=== PATIENT | female | born 1970 | race Caucasian/White ===

== ENCOUNTER 2016-08-02 13:24 | Emergency (ER) ==
[2016-08-02 13:43] VITALS: BP 144/98; TEMP 97.6; BMI 26.5
--- NOTE | 2016-08-02 14:05 | CT ---
EXAM: CT scan of the head without contrast HISTORY: Fall TECHNIQUE: Imaging of the head was performed without intravenous contrast. 5 mm thin axial images and coronal and sagittal images were provided for interpretation. FINDINGS: The lateral ventricles and cortical sulci are normal. The baugh-white interface appears n ormal. No acute hemorrhages are seen. There is no mass effect. There are no extraaxial collection s. The basal cisterns are patent. The paranasal sinuses and mastoid air cells are clear. The calv arium and extracranial soft tissues are normal. IMPRESSION: No acute traumatic abnormalities are seen.
--- NOTE | 2016-08-02 14:09 | CT ---
Exam: CT cervical spine without contrast Clinical indication: Fall with neck pain. TECHNIQUE: Axial unenhanced CT images from the upper thoracic spine through the skull base were obt ained followed by coronal and sagittal reformats. Findings: The alignment of the cervical spine is within normal limits. There are no fractures, dislocations or other significant bony abnormalities. The disc spaces are well maintained. The visualized soft tissues and pulmonary parenchyma are unrem arkable. Impression: No acute cervical fracture.
--- NOTE | 2016-08-02 14:10 | ED.PDOC ---
General ED Provider: Dr. CHRISTIN BANSAL-ER Chief Complaint: Non-specific Complaint Stated Complaint: my neck and back hurt---im out of my valium for my fibromyalgia Time Seen by Physician: 13:30 Mode of Arrival: Walk-In Information Source: Patient, Family Exam Limitations: No limitations Primary Care Provider: DOROTEO VIDAL Nursing and Triage Documentation Reviewed and Agree: Yes Musculoskeletal Complaint Exam - Neck Pain Complaint/Exam Mechanism of Injury: Reports: Trauma Onset/Duration: several days Symptoms Are: Still present Timing: Intermittent Episodes Lasting: Hours Initial Severity: Mild Current Severity: Mild Location: Reports: Diffuse Character: Reports: Spasmodic, Stiffness Aggravating: Reports: Position, Movement Alleviating: Reports: None Associated Signs and Symptoms: Denies: Swelling, Redness, Bruising, Fever, Nuchal rigidity, Weakness, Headache, Paresthesia Related History: Reports: Similar episode Meningitis Risk Factors: Reports: None Cervical Spine Injury Risk Factors: Reports: None Carotid Bruit Present: No Pain on Passive Flexion: No Positive Kernig's Sign: No ROM Limited In: Present: Flexion, Extension Pain Located at: posterior neck Tenderness: Present: Midline Focal Weakness: Present: None Focal Sensory Loss: Reports: None Nexus Low Risk Criteria: No post-midline CS tender Differential Diagnoses: Arthritis, Trauma, Other (fibromyalgia) Review of Systems - Review Of Systems Constitutional: Reports: No symptoms Eyes: Reports: No symptoms Ears, Nose, Mouth, Throat: Reports: No symptoms Respiratory: Reports: No symptoms Cardiac: Reports: No symptoms GI: Reports: No symptoms : Reports: No symptoms Musculoskeletal: Reports: Back pain, Muscle pain, Neck pain Skin: Reports: No symptoms Neurological: Reports: No symptoms Endocrine: Reports: No symptoms Hematologic/Lymphatic: Reports: No symptoms All Other Systems: Reviewed and Negative Past Medical History - Past Medical History Previously Healthy: No Endocrine: Reports: DM 2 Cardiovascular: Reports: Hypertension Respiratory: Reports: COPD Hematological: Reports: None Gastrointestinal: Reports: Liver (ANEURYSM LIVER), GI Bleed Genitourinary: Reports: None Neuro/Psych: Reports: Other (FIBROMYALGIA) Musculoskeletal: Reports: Arthritis Cancer: Reports: Other (uterine) Last Menstrual Period: does not apply Other Pertinent Past Medical History: SLEEP APNEA - Surgical History General Surgical History: Reports: Hysterectomy, Cholecystectomy, Other (TUBAL REVERSAL), Unknown - Family History Family History: Reports: Unknown - Social History Smoking Status: Current some day smoker Hx Substance Use: No Alcohol Screening: Occasionally Lives: With family - Immunizations Tetanus Shot up to Date: Yes Physical Exam - Physical Exam Appearance: Well-appearing Eyes: GLORIA, EOMI, Conjunctiva clear ENT: Ears normal, Nose normal, Oropharynx normal Neck: Supple Respiratory: Airway patent, Breath sounds clear, Breath sounds equal, Respirations nonlabored Cardiovascular: RRR, Pulses normal, No rub, No murmur GI/: Soft, Nontender, No masses, Bowel sounds normal, No Organomegaly Musculoskeletal: Normal strength, ROM intact, No edema, No calf tenderness Skin: Warm, Dry, Normal color Neurological: Sensation intact, Motor intact, Reflexes intact, Cranial nerves intact, Alert, Oriented Psychiatric: Affect appropriate, Mood appropriate Interpretation - Radiology Interpretation Radiology Interpretation By: Radiologist Radiology Results: Negative Exam Interpreted: CT Scan Critical Care Note - Critical Care Note Total Time (mins): 0 Course - Course Orders, Labs, Meds: Orders Category Date Time Status CT CERVICAL SPINE W/O CONTRAST Stat RADS 08/02/16 13:[address] HEAD W/O CONTRAST Stat RADS 08/02/16 13:[address] LUMBAR SPINE W/O CONTRAST Stat RADS 08/02/16 13:43 Ordered Vital Signs: Temp Pulse Resp BP Pulse Ox 08/02/16 13:25 97.6 F 68 20 144/98 H 94 L Departure - Departure Time of Disposition: 14:27 Disposition: HOME SELF-CARE Discharge Problem: Fibromyalgia Instructions: Fibromyalgia (ED) Condition: Good Pt referred to PMD for follow-up: Yes Additional Instructions: valium 5mg tid #15=--f/u wtih pcp Allergies/Adverse Reactions: Allergies ketorolac tromethamine [From Toradol] Adverse Reaction (Verified 01/15/16 22:40) NSAIDS (Non-Steroidal Anti-Inflamma Adverse Reaction (Verified 01/15/16 22:40) Home Medications: Ambulatory Orders Albiglutide [Tanzeum] 50 mg SQ WEEKLY 07/27/15 Albuterol Sulfate [Proventil Hfa] 17 gm IH BID 07/27/15 Atorvastatin Calcium [Lipitor] 10 mg PO BEDTIME 07/27/15 Cyclobenzaprine HCl [Flexeril] 5 mg PO TID 07/27/15 Fluticasone Propionate [Flonase] 2 spray NS DAILY 07/27/15 Gemfibrozil [Lopid] 600 mg PO BID 07/27/15 Icosapent Ethyl [Vascepa] 1 gm PO DAILY 07/27/15 Insulin Glargine,Hum.rec.anlog [Lantus Solostar] 14 unit SQ DAILY 07/27/15 Omeprazole [Prilosec] 40 mg PO DAILY 07/27/15 Ondansetron HCl [Zofran Tab] 4 mg PO QID PRN #12 tablet 07/27/15 Promethazine HCl 25 mg PO Q4H PRN 07/27/15 Valsartan/Hydrochlorothiazide [Diovan Hct 320-25 mg Tablet] 1 each PO DAILY Vortioxetine Hydrobromide [Brintellix] 15 mg PO DAILY 07/27/15 Dicyclomine HCl [Bentyl] 10 mg PO TID 01/05/16 Docusate Sodium [Colace] 100 mg PO BID 01/05/16 Dronabinol [Marinol] 5 mg PO BID 01/05/16 Hydroxychloroquine Sulfate [Plaquenil] 400 mg PO DAILY 01/05/16 Sertraline HCl [Zoloft] 150 mg PO BEDTIME 01/05/16 Zolpidem Tartrate [Ambien] 5 mg PO BEDTIME 01/05/16 Disposition Discussed With: Patient, Family
--- NOTE | 2016-08-02 14:26 | CT ---
Exam: CT lumbar spine without contrast. Clinical indication: Fall with back pain. TECHNIQUE: Axial unenhanced CT images of the lumbar spine from the lower thoracic spine through the mid sacrum were obtained followed by coronal and sagittal reformats. Findings: There are five non-rib bearing lumbar vertebra. The alignment of the lumbar spine is within normal limits. There are no acute lumbar fractures. The T12-L1, L1-L2, and L2-L3 levels are within normal limits for the patient's age, without spinal s tenosis or neural foraminal narrowing. At the L3-L4 level there is a mild broad-based posterior disc bulge associate with some mild facet d egenerative changes, but no spinal stenosis or neural foraminal narrowing. At the L4-L5 level there is a moderate broad-based posterior disc bulge associate with moderate bila teral facet hypertrophic degenerative changes, causing mild bilateral neural foraminal narrowing, bu t no spinal stenosis. At the L5-S1 level there is a mild posterior broad-based disc bulge associate with some mild facet d egenerative changes, causing mild bilateral neural foraminal narrowing, but no spinal stenosis. The visualized soft tissues are unremarkable. Impression: 1. No acute lumbar fracture. 2. Multilevel degenerative changes with neural foraminal narrowing, as described above on the level by level basis.
== END 2016-08-02 14:41 | disposition home or self-care (01) ==
LOC: ED 13:24
DX: M79.7 Fibromyalgia (principal); F17.210 Nicotine dependence, cigarettes, uncomplicated; Z79.899 Other long term (current) drug therapy
CPT/HCPCS: 99283

== ENCOUNTER 2016-08-06 21:12 | Emergency (ER) ==
--- NOTE | 2016-08-06 21:16 | ED.PDOC ---
General ED Provider: Dr. CHRISTIN BANSAL-ER Chief Complaint: Non-specific Complaint Stated Complaint: my fibromyalgia is acting up...i ran out of my valium Time Seen by Physician: 21:14 Mode of Arrival: Walk-In Information Source: Patient, Family Primary Care Provider: DOROTEO VIDAL Nursing and Triage Documentation Reviewed and Agree: Yes Musculoskeletal Complaint Exam - Lower Extremity Complaint/Exam Location of Pain: Reports: Right, Left Mechanism of Injury: Reports: No known trauma Onset/Duration: several days Symptoms Are: Still present Onset of Pain: Reports: Immediate Initial Severity: Mild Current Severity: Mild Location: Reports: Diffuse Character: Reports: Dull, Aching Aggravating: Reports: Movement, Weight bearing Able to Bear Weight: No Associated Signs and Symptoms: Denies: Swelling, Redness, Bruising, Fever, Weakness, Numbness, Tingling Related History: Reports: Similar episode DVT Risk Factors: Reports: None Lower Extremity Findings: Present: Tenderness NV Bundle Intact Distal to Injury: No Compartment Syndrome Risk Factors: Present: Pain Wellington's Sign Present: No Differential Diagnoses: Other Review of Systems - Review Of Systems Constitutional: Reports: No symptoms Eyes: Reports: No symptoms Ears, Nose, Mouth, Throat: Reports: No symptoms Respiratory: Reports: No symptoms Cardiac: Reports: No symptoms GI: Reports: No symptoms : Reports: No symptoms Musculoskeletal: Reports: No symptoms Skin: Reports: No symptoms Neurological: Reports: No symptoms Endocrine: Reports: No symptoms Hematologic/Lymphatic: Reports: No symptoms All Other Systems: Reviewed and Negative Past Medical History - Past Medical History Previously Healthy: No Endocrine: Reports: DM 2 Cardiovascular: Reports: Hypertension Respiratory: Reports: COPD Hematological: Reports: None Gastrointestinal: Reports: Liver (ANEURYSM LIVER), GI Bleed Genitourinary: Reports: None Neuro/Psych: Reports: Other (FIBROMYALGIA) Musculoskeletal: Reports: Arthritis Cancer: Reports: Other (uterine) Other Pertinent Past Medical History: SLEEP APNEA - Surgical History General Surgical History: Reports: Hysterectomy, Cholecystectomy, Other (TUBAL REVERSAL), Unknown - Family History Family History: Reports: Unknown - Social History Smoking Status: Former smoker Hx Substance Use: No Alcohol Screening: Occasionally Lives: With family Physical Exam - Physical Exam Appearance: Well-appearing, No pain distress, Well-nourished Pain Distress: Mild Eyes: GLORIA, EOMI, Conjunctiva clear ENT: Ears normal, Nose normal, Oropharynx normal Neck: Supple Respiratory: Airway patent, Breath sounds clear, Breath sounds equal, Respirations nonlabored Cardiovascular: RRR GI/: Soft, Nontender, No masses, Bowel sounds normal, No Organomegaly Musculoskeletal: Limited ROM, Limited strength Skin: Warm, Dry, Normal color Neurological: Sensation intact, Motor intact, Reflexes intact, Cranial nerves intact, Alert, Oriented Psychiatric: Affect appropriate, Mood appropriate Critical Care Note - Critical Care Note Total Time (mins): 0 Departure - Departure Time of Disposition: 21:16 Disposition: HOME SELF-CARE Discharge Problem: Fibromyalgia Instructions: Fibromyalgia (ED) Condition: Good Pt referred to PMD for follow-up: Yes Additional Instructions: valium 5mg tid #15--f/u with pcp Allergies/Adverse Reactions: Allergies ketorolac tromethamine [From Toradol] Adverse Reaction (Verified 01/15/16 22:40) NSAIDS (Non-Steroidal Anti-Inflamma Adverse Reaction (Verified 01/15/16 22:40) Home Medications: Ambulatory Orders Albiglutide [Tanzeum] 50 mg SQ WEEKLY 07/27/15 Albuterol Sulfate [Proventil Hfa] 17 gm IH BID 07/27/15 Atorvastatin Calcium [Lipitor] 10 mg PO BEDTIME 07/27/15 Cyclobenzaprine HCl [Flexeril] 5 mg PO TID 07/27/15 Fluticasone Propionate [Flonase] 2 spray NS DAILY 07/27/15 Gemfibrozil [Lopid] 600 mg PO BID 07/27/15 Icosapent Ethyl [Vascepa] 1 gm PO DAILY 07/27/15 Insulin Glargine,Hum.rec.anlog [Lantus Solostar] 14 unit SQ DAILY 07/27/15 Omeprazole [Prilosec] 40 mg PO DAILY 07/27/15 Ondansetron HCl [Zofran Tab] 4 mg PO QID PRN #12 tablet 07/27/15 Promethazine HCl 25 mg PO Q4H PRN 07/27/15 Valsartan/Hydrochlorothiazide [Diovan Hct 320-25 mg Tablet] 1 each PO DAILY Vortioxetine Hydrobromide [Brintellix] 15 mg PO DAILY 07/27/15 Dicyclomine HCl [Bentyl] 10 mg PO TID 01/05/16 Docusate Sodium [Colace] 100 mg PO BID 01/05/16 Dronabinol [Marinol] 5 mg PO BID 01/05/16 Hydroxychloroquine Sulfate [Plaquenil] 400 mg PO DAILY 01/05/16 Sertraline HCl [Zoloft] 150 mg PO BEDTIME 01/05/16 Zolpidem Tartrate [Ambien] 5 mg PO BEDTIME 01/05/16 Disposition Discussed With: Patient, Family
[2016-08-06 21:25] VITALS: BP 146/95; TEMP 97.3; BMI 25.1
== END 2016-08-06 21:38 | disposition home or self-care (01) ==
LOC: ED 21:12
DX: M79.7 Fibromyalgia (principal)
CPT/HCPCS: 99283

== ENCOUNTER 2016-08-28 13:28 | Emergency (ER) ==
[2016-08-28 13:38] VITALS: BP 89/62; TEMP 97.8; BMI 25.6
--- NOTE | 2016-08-28 13:51 | ED.PDOC ---
General ED Provider: Dr. CINDI SHEPARD JR Chief Complaint: Bite Stated Complaint: patient states she cleaned in her basement and woke up with next day with red, itchy bumps on right arm. patient has 3 areas that are approx the 2.5 cm in diameter. [ End ] Time Seen by Physician: 13:49 Mode of Arrival: Walk-In Information Source: Patient Exam Limitations: No limitations Primary Care Provider: DOROTEO VIDAL Nursing and Triage Documentation Reviewed and Agree: No Review of Systems - Review Of Systems Constitutional: Reports: No symptoms Eyes: Reports: No symptoms Ears, Nose, Mouth, Throat: Reports: No symptoms Respiratory: Reports: No symptoms Cardiac: Reports: No symptoms GI: Reports: No symptoms : Reports: No symptoms Musculoskeletal: Reports: No symptoms Skin: Reports: Lesions, Lumps Neurological: Reports: No symptoms Endocrine: Reports: No symptoms Hematologic/Lymphatic: Reports: No symptoms All Other Systems: Other Past Medical History - Past Medical History Previously Healthy: No Endocrine: Reports: DM 2 Cardiovascular: Reports: Hypertension Respiratory: Reports: COPD Hematological: Reports: None Gastrointestinal: Reports: Liver (ANEURYSM LIVER), GI Bleed Genitourinary: Reports: None Neuro/Psych: Reports: Other (FIBROMYALGIA) Musculoskeletal: Reports: Arthritis Cancer: Reports: Other (uterine) Last Menstrual Period: n/a Other Pertinent Past Medical History: SLEEP APNEA - Surgical History General Surgical History: Reports: Hysterectomy, Cholecystectomy, Other (TUBAL REVERSAL), Unknown - Family History Family History: Reports: Unknown - Social History Smoking Status: Former smoker Hx Substance Use: No Alcohol Screening: Occasionally Physical Exam - Physical Exam Appearance: Ill-appearing, Thin Ill-appearing: Mild Pain Distress: Mild Neck: Supple Respiratory: Airway patent, Breath sounds equal, Breath sounds diminished, Rhonchi Skin: Warm, Dry, Normal color (4 EXCORIATED LESIONS RIGHT ARM AND ELBOW NO PUNCTURES SEEN 1-2CM ERYTHEMA AND EDEMA ITCHING AND PAINFUL) Critical Care Note - Critical Care Note Total Time (mins): 0 Course - Course Vital Signs: Temp Pulse Resp BP Pulse Ox 08/28/16 13:35 97.8 F 67 20 89/62 L 97 Departure - Departure Time of Disposition: 13:50 Disposition: HOME SELF-CARE Discharge Problem: Insect bite, Cellulitis Instructions: Cellulitis (ED) Condition: Good Pt referred to PMD for follow-up: Yes Additional Instructions: BACTRIM TWICE ADAY FOR ONE WEEK MAY USE BENADRYL FOR IITCING MAY CONTINUE IBUPROFEN FOR PAIN Please follow-up with Dr. Yuan in 1-5 days Prescriptions: Sulfamethoxazole/Trimethoprim [Bactrim Ds 800/160 mg] 1 tab PO Q12HR #14 tablet Diphenhydramine HCl [Benadryl] 25 mg PO QID #30 capsule Allergies/Adverse Reactions: Allergies ketorolac tromethamine [From Toradol] Adverse Reaction (Verified 08/28/16 13:39) morphine Adverse Reaction (Verified 08/28/16 13:39) Rash NSAIDS (Non-Steroidal Anti-Inflamma Adverse Reaction (Verified 08/28/16 13:39) Home Medications: Ambulatory Orders Albiglutide [Tanzeum] 50 mg SQ WEEKLY 07/27/15 Albuterol Sulfate [Proventil Hfa] 17 gm IH BID 07/27/15 Atorvastatin Calcium [Lipitor] 10 mg PO BEDTIME 07/27/15 Cyclobenzaprine HCl [Flexeril] 10 mg PO TID 07/27/15 Fluticasone Propionate [Flonase] 2 spray NS DAILY 07/27/15 Gemfibrozil [Lopid] 600 mg PO BID 07/27/15 Icosapent Ethyl [Vascepa] 1 gm PO DAILY 07/27/15 Insulin Glargine,Hum.rec.anlog [Lantus Solostar] 14 unit SQ DAILY 07/27/15 Omeprazole [Prilosec] 40 mg PO DAILY 07/27/15 Promethazine HCl 25 mg PO Q4H PRN 07/27/15 Valsartan/Hydrochlorothiazide [Diovan Hct 320-25 mg Tablet] 1 each PO DAILY Vortioxetine Hydrobromide [Brintellix] 15 mg PO DAILY 07/27/15 Dicyclomine HCl [Bentyl] 10 mg PO TID 01/05/16 Docusate Sodium [Colace] 100 mg PO BID 01/05/16 Hydroxychloroquine Sulfate [Plaquenil] 400 mg PO DAILY 01/05/16 Sertraline HCl [Zoloft] 150 mg PO BEDTIME 01/05/16 Diphenhydramine HCl [Benadryl] 25 mg PO QID #30 capsule 03/30/17 Sulfamethoxazole/Trimethoprim [Bactrim Ds 800/160 mg] 1 tab PO Q12HR #14 tablet 08/28/16
== END 2016-08-28 14:07 | disposition home or self-care (01) ==
LOC: ED 13:28
DX: S40.861A Insect bite (nonvenomous) of right upper arm, initial encounter (principal); L03.113 Cellulitis of right upper limb; W57.XXXA Bitten or stung by nonvenomous insect and other nonvenomous arthropods, initial encounter
CPT/HCPCS: 99282

== ENCOUNTER 2016-09-20 19:15 | Emergency (ER) ==
[2016-09-20 19:25] VITALS: BP 131/92; TEMP 97.8; BMI 26.2
[2016-09-20] MEDS ORDERED: KEFLEX PO STA (20:05)
[2016-09-20] MEDS ORDERED: SOLU-MEDROL 125 MG IM STA (20:05)
--- NOTE | 2016-09-20 20:16 | ED.PDOC ---
General ED Provider: Dr. EDWARDO NOVAK Chief Complaint: Rash Stated Complaint: Patient is a 46 year old female who states was seen in [place] ER 2 weeks ago and prescribed antibiotic and Benadryl for same rash that has not gone away. She continues to have red, itchy spots on legs, feet and inner thighs and states is painful. She also states has treated house for bed bugs Time Seen by Physician: 20:00 Mode of Arrival: Walk-In Information Source: Patient Exam Limitations: No limitations Primary Care Provider: JONATHAN WILLOUGHBY Nursing and Triage Documentation Reviewed and Agree: Yes Skin Complaint Exam - Skin Rash/Itching Complaint/Exam Onset/Duration: 2 weeks Symptoms Are: Still present Initial Severity: Moderate Current Severity: Moderate Location: Legs Potential Exposures: Reports: Unknown Prior Treatment: Benadryl Aggravating: Reports: None Alleviating: Reports: None Related History: Similar episode Skin Findings: Present: Urticaria, Maculae Body Picture: 1 - scattared areas of papuric lesions measuring 2 cm Differential Diagnoses: Allergic Reaction, Contact Dermatitis, Scabies, Urticaria Review of Systems - Review Of Systems Constitutional: Reports: No symptoms Skin: Reports: Rash All Other Systems: Reviewed and Negative Past Medical History - Past Medical History Previously Healthy: No Endocrine: Reports: DM 2 Cardiovascular: Reports: Hypertension Respiratory: Reports: COPD Hematological: Reports: None Gastrointestinal: Reports: Liver (ANEURYSM LIVER), GI Bleed Genitourinary: Reports: None Neuro/Psych: Reports: Other (FIBROMYALGIA) Musculoskeletal: Reports: Arthritis Cancer: Reports: Other (uterine) Last Menstrual Period: PT HAS HAD A HYSTERECTOMY Other Pertinent Past Medical History: SLEEP APNEA - Surgical History General Surgical History: Reports: Hysterectomy, Cholecystectomy, Other (TUBAL REVERSAL), Unknown - Family History Family History: Reports: Unknown - Social History Smoking Status: Current some day smoker Hx Substance Use: No (PT HAS RX FOR MEDICAL MARIJUANA) Alcohol Screening: Occasionally - Immunizations Tetanus Shot up to Date: Yes Physical Exam - Physical Exam Appearance: Well-appearing, No pain distress, Well-nourished Neck: Supple Respiratory: Airway patent, Breath sounds clear, Breath sounds equal, Respirations nonlabored Cardiovascular: RRR, Pulses normal, No rub, No murmur GI/: Soft, Nontender, No masses, Bowel sounds normal, No Organomegaly Musculoskeletal: Normal strength, ROM intact, No edema, No calf tenderness Skin: Warm, Dry Neurological: Sensation intact, Motor intact, Alert, Oriented Psychiatric: Anxious Critical Care Note - Critical Care Note Total Time (mins): 0 Course - Course Orders, Labs, Meds: Orders Category Date Time Status Cephalexin [Keflex] MEDS 09/20/16 20:05 Discontinued 500 mg PO ONCE STA Methylprednisolone Sod Succ/Pf [Solu-Medrol 125 mg] MEDS 09/20/16 20:05 Discontinued 125 mg IM ONCE STA Medications Discontinued Medications Generic Name Dose Route Start Last Admin Trade Name Kody PRN Reason Stop Dose Admin Cephalexin 500 mg 09/20/16 20:05 09/20/16 20:17 Keflex PO 09/20/16 20:06 500 mg ONCE STA Administration Methylprednisolone Sodium Succinate 125 mg 09/20/16 20:05 09/20/16 20:18 Solu-Medrol 125 Mg IM 09/20/16 20:06 125 mg ONCE STA Administration Vital Signs: Temp Pulse Resp BP Pulse Ox 09/20/16 19:16 97.8 F 74 20 131/92 H 98 Departure - Departure Time of Disposition: 20:40 Disposition: HOME SELF-CARE Discharge Problem: Pruritic rash, Dermatitis Instructions: Dermatitis (ED) Condition: Fair Pt referred to PMD for follow-up: Yes Additional Instructions: Take medications as prescribed follow up with PCP in 3 days Prescriptions: Cephalexin [Keflex] 500 mg PO Q8HR #30 capsule Methylprednisolone [Medrol Dosepak] 4 mg PO DIRECTED #1 pkg Allergies/Adverse Reactions: Allergies ketorolac tromethamine [From Toradol] Adverse Reaction (Verified 09/20/16 19:25) morphine Adverse Reaction (Verified 09/20/16 19:25) Rash NSAIDS (Non-Steroidal Anti-Inflamma Adverse Reaction (Verified 09/20/16 19:25) Home Medications: Ambulatory Orders Albiglutide [Tanzeum] 50 mg SQ WEEKLY 07/27/15 Albuterol Sulfate [Proventil Hfa] 17 gm IH BID 07/27/15 Atorvastatin Calcium [Lipitor] 10 mg PO BEDTIME 07/27/15 Cyclobenzaprine HCl [Flexeril] 10 mg PO TID 07/27/15 Fluticasone Propionate [Flonase] 2 spray NS DAILY 07/27/15 Gemfibrozil [Lopid] 600 mg PO BID 07/27/15 Icosapent Ethyl [Vascepa] 1 gm PO DAILY 07/27/15 Insulin Glargine,Hum.rec.anlog [Lantus Solostar] 14 unit SQ DAILY 07/27/15 Omeprazole [Prilosec] 40 mg PO DAILY 07/27/15 Promethazine HCl 25 mg PO Q4H PRN 07/27/15 Valsartan/Hydrochlorothiazide [Diovan Hct 320-25 mg Tablet] 1 each PO DAILY Vortioxetine Hydrobromide [Brintellix] 15 mg PO DAILY 07/27/15 Dicyclomine HCl [Bentyl] 10 mg PO TID 01/05/16 Docusate Sodium [Colace] 100 mg PO BID 01/05/16 Hydroxychloroquine Sulfate [Plaquenil] 400 mg PO DAILY 01/05/16 Sertraline HCl [Zoloft] 150 mg PO BEDTIME 01/05/16 Sulfamethoxazole/Trimethoprim [Bactrim Ds 800/160 mg] 1 tab PO Q12HR #14 tablet 08/28/16 Cephalexin [Keflex] 500 mg PO Q8HR #30 capsule 09/20/16 Clonazepam [Klonopin] 0.5 mg PO TID 09/20/16 Diphenhydramine HCl [Benadryl] 25 mg PO QID PRN 09/20/16 Methylprednisolone [Medrol Dosepak] 4 mg PO DIRECTED #1 pkg 09/20/16 Disposition Discussed With: Patient, Family
== END 2016-09-20 20:32 | disposition home or self-care (01) ==
LOC: ED 19:15
DX: L30.9 Dermatitis, unspecified (principal); F17.210 Nicotine dependence, cigarettes, uncomplicated
CPT/HCPCS: 96372; 99282

== ENCOUNTER 2016-11-27 16:44 | Outpatient (CLI) ==
[2016-11-27 16:55] LABS: BASOPHILS # (AUTO) 0.1 K/uL (0-0.2); BASOPHILS % (AUTO) 0.7 % (0.0-3.0); EOSINOPHILS # (AUTO) 0.3 K/ul (0.0-0.7); EOSINOPHILS % (AUTO) 3.4 % (0.0-7.0); HEMATOCRIT 43.8 % (37.0-47.0); HEMOGLOBIN 14.8 g/dl (12.0-16.0); IMMATURE GRANULOCYTE % (AUTO) 0.1 % (0.0-5.0); LYMPHOCYTES # (AUTO) 3.3 K/uL (0.60-3.4); LYMPHOCYTES % (AUTO) 37.4 (10.0-50.0); MEAN CORPUSCULAR HEMOGLOBIN 29.8 pg (27.0-31.0); MEAN CORPUSCULAR HGB CONC 33.8 (31.8-35.4); MEAN CORPUSCULAR VOLUME 88.3 fl (81.0-99.0); MONOCYTES # (AUTO) 0.5 K/uL (0.4-2.0); MONOCYTES % (AUTO) 5.9 (0-10); NEUTROPHILS # (AUTO) 4.6 K/ul (2.0-6.9); NEUTROPHILS % (AUTO) 52.5; PLATELET COUNT 320 10^3/uL (140-440); RED BLOOD COUNT 4.96 10^6/ul (4.20-5.40); WHITE BLOOD COUNT 8.82 K/ul (4.6-10.2)
[2016-11-27 17:28] LABS: ALBUMIN 3.9 g/dL (3.4-5.0); ALBUMIN/GLOBULIN RATIO 1.44; ANION GAP 13.1; BILIRUBIN,TOTAL 0.41 mg/dL (0.00-1.20); BUN/CREATININE RATIO 11.45; CALCIUM 9.1 mg/dL (8.2-10.2); CHOL/HDL RATIO 3.5 (4.5-5.5); CREATININE 0.96 mg/dL (0.60-1.30); POTASSIUM 4.1 mmol/L (3.5-5.10); TOTAL PROTEIN 6.6 g/dL (6.4-8.2)
== END 2016-11-27 16:45 | disposition home or self-care (01) ==
LOC: LAB 16:44
PROVIDERS: ATTEND Nurse Practitioner Family
DX: E75.6 Lipid storage disorder, unspecified (principal); M79.7 Fibromyalgia; M06.9 Rheumatoid arthritis, unspecified; M19.90 Unspecified osteoarthritis, unspecified site
CPT/HCPCS: 36415; 80053; 80061; 82306; 84439; 84443; 85025

== ENCOUNTER 2017-02-11 07:20 | Emergency (ER) ==
[2017-02-11 07:28] VITALS: BP 106/81; TEMP 98.3; BMI 29.5
--- NOTE | 2017-02-11 07:47 | ED.PDOC ---
General ED Provider: Dr. CINDI SHEPARD JR Chief Complaint: Urinary Problem Stated Complaint: problems voiding--states has lots of pressure to lower abd- feels that she has to push on abd to void--pain worsened last pm. [ End ]98.3 71 20 97% 106/81 9/10. 3 days since benadryl 3 months since fluoroquinolones Time Seen by Physician: 07:48 Mode of Arrival: Walk-In Information Source: Patient Exam Limitations: No limitations [facility] and T[facility] Documentation Reviewed and Agree: No Review of Systems - Review Of Systems Constitutional: Reports: Malaise, Weakness Eyes: Reports: No symptoms Ears, Nose, Mouth, Throat: Reports: No symptoms Respiratory: Reports: No symptoms Cardiac: Reports: No symptoms GI: Reports: Abdominal pain, Poor appetite : Reports: Dysuria, Flank pain, Pain, Urgency Musculoskeletal: Reports: No symptoms Skin: Reports: No symptoms Neurological: Reports: No symptoms Endocrine: Reports: No symptoms Hematologic/Lymphatic: Reports: No symptoms All Other Systems: Other Past Medical History - Past Medical History Previously Healthy: No Endocrine: Reports: DM 2 Cardiovascular: Reports: Hypertension Respiratory: Reports: COPD Hematological: Reports: None Gastrointestinal: Reports: Liver (ANEURYSM LIVER), GI Bleed, Diverticulitis, Other (gastroparesis,) Genitourinary: Reports: None Neuro/Psych: Reports: Depression, Other (FIBROMYALGIA) Musculoskeletal: Reports: Arthritis Cancer: Reports: Other (uterine, ovarian cancer, skin cancer) Last Menstrual Period: hysterectomy Other Pertinent Past Medical History: SLEEP APNEA- chronic pain- Yes: medical marijuana - Surgical History General Surgical History: Reports: Hysterectomy, Tubal ligation (TUBAL REVERSAL) , Cholecystectomy, Other (TUBAL REVERSAL), Unknown - Family History Family History: Reports: Unknown - Social History Smoking Status: Former smoker Hx Substance Use: Yes (medical marijuana) Alcohol Screening: None Physical Exam - Physical Exam Appearance: Well-appearing Ill-appearing: Mild Pain Distress: Mild Eyes: GLORIA, EOMI, Conjunctiva clear ENT: Ears normal, Nose normal, Oropharynx normal Neck: Supple Respiratory: Airway patent, Breath sounds clear, Breath sounds equal, Respirations nonlabored Cardiovascular: RRR, Pulses normal, No rub, No murmur GI/: Soft, Nontender, No masses, Bowel sounds normal, No Organomegaly Musculoskeletal: Normal strength, ROM intact, No edema, No calf tenderness ( diffuse tenderess- winces with CVA percussion(no more pain than ususal)) Skin: Warm, Dry, Normal color Neurological: Sensation intact, Motor intact, Reflexes intact, Cranial nerves intact, Alert, Oriented Psychiatric: Affect appropriate, Mood appropriate, Anxious Critical Care Note - Critical Care Note Total Time (mins): 0 Course - Course Orders, Labs, Meds: Lab Review 02/11/17 07:44 Urine Color Yellow Urine Clarity Turbid Urine pH 6.5 Ur Specific [place] 1.020 Urine Protein 2+ Urine Glucose (UA) Negative Urine Ketones Negative Urine Blood 2+ Urine Nitrite Negative Urine Bilirubin Negative Urine Urobilinogen 0.2 Ur Leukocyte Esterase 3+ Urine Microscopic RBC 30-50 Urine Microscopic WBC Tntc Ur Squamous Epith Cells Not present Orders Category Date Time Status UA [URINALYSIS C & S IF INDICATED] Stat LAB 02/11/17 07:44 Completed URINE CULTURE Stat LAB 02/11/17 07:44 Received Diphenhydramine Inj [Benadryl] MEDS 02/11/17 07:58 Stat 50 mg IM ONCE STA Medications Generic Name Dose Route Start Last Admin Trade Name Freq PRN Reason Stop Dose Admin Diphenhydramine HCl 50 mg 02/11/17 07:58 Benadryl IM 02/11/17 07:59 ONCE STA Vital Signs: Temp Pulse Resp BP Pulse Ox 02/11/17 07:20 98.3 F 71 20 106/81 97 Departure - Departure Time of Disposition: 08:00 Disposition: HOME SELF-CARE Discharge Problem: Urinary tract infectious disease Instructions: Urinary Tract Infection in Women (ED) Condition: Good Pt referred to PMD for follow-up: Yes Additional Instructions: call PMD in 2 days about antibiotic and urine culture Macrobid twice a day for one week Pyridium for discomfort 200mg three times a day may add Tylenol and Benadryl for pain if Pyridium is enough Prescriptions: Nitrofurantoin Monohyd/M-Cryst [Macrobid] 100 mg PO BID #14 capsule Phenazopyridine HCl [Pyridium] 200 mg PO TID PRN #10 tablet PRN Reason: PAIN Allergies/Adverse Reactions: Allergies meperidine HCl [From Demerol] Allergy (Intermediate, Verified 02/11/17 07:30) itching ketorolac tromethamine [From Toradol] Adverse Reaction (Verified 02/11/17 07:30) morphine Adverse Reaction (Verified 02/11/17 07:30) Rash NSAIDS (Non-Steroidal Anti-Inflamma Adverse Reaction (Verified 02/11/17 07:30) Home Medications: Ambulatory Orders Albiglutide [Tanzeum] 50 mg SQ WEEKLY 07/27/15 Atorvastatin Calcium [Lipitor] 10 mg PO BEDTIME 07/27/15 Cyclobenzaprine HCl [Flexeril] 10 mg PO TID 07/27/15 Fluticasone Propionate [Flonase] 2 spray NS DAILY 07/27/15 Insulin Glargine,Hum.rec.anlog [Lantus Solostar] 14 unit SQ DAILY 07/27/15 Dicyclomine HCl [Bentyl] 10 mg PO TID 01/05/16 Docusate Sodium [Colace] 100 mg PO BID 01/05/16 Hydroxychloroquine Sulfate [Plaquenil] 400 mg PO DAILY 01/05/16 Sertraline HCl [Zoloft] 150 mg PO BEDTIME 01/05/16 Clonazepam [Klonopin] 0.5 mg PO TID 09/20/16 Diphenhydramine HCl [Benadryl] 25 mg PO QID PRN 09/20/16 Albuterol Sulfate [Proair Hfa] 8.5 gm IH QID PRN 10/29/16 Amlodipine Besylate [Norvasc] 5 mg PO DAILY 10/29/16 Dulaglutide [Trulicity] 1.5 mg SQ WEEKLY 10/29/16 Gabapentin 300 mg PO TID 10/29/16 Gemfibrozil [Lopid] 600 mg PO BID 10/29/16 Icosapent Ethyl [Vascepa] 1 gm PO DAILY 10/29/16 Omeprazole 40 mg PO DAILY 10/29/16 Valsartan/Hydrochlorothiazide [Diovan Hct 320-12.5 Mg Tab] 1 each PO DAILY 10/29 Vortioxetine Hydrobromide [Trintellix] 10 mg PO DAILY 10/29/16 Nitrofurantoin Monohyd/M-Cryst [Macrobid] 100 mg PO BID #14 capsule 02/11/17 Phenazopyridine HCl [Pyridium] 200 mg PO TID PRN #10 tablet 02/11/17
[2017-02-11 07:48] LABS: BILIRUBIN,URINE Negative (NEGATIVE); KETONES,URINE Negative (NEGATIVE); LEUKOCYTE ESTERASE ,URINE 3+ (NEGATIVE); NITRITE,URINE Negative (NEGATIVE); PH,URINE 6.5 (5-9); PROTEIN,URINE 2+ (NEGATIVE); URINE, BLOOD 2+ (NEGATIVE)
[2017-02-11 07:49] LABS: ADD URINE MICROSCOPIC YES
[2017-02-11] MEDS ORDERED: BENADRYL IM STA (07:58)
== END 2017-02-11 08:26 | disposition home or self-care (01) ==
LOC: ED 07:20
DX: N39.0 Urinary tract infection, site not specified (principal)
CPT/HCPCS: 81001; 87086; 87186; 96372; 99283

== ENCOUNTER 2017-02-18 16:18 | Emergency (ER) ==
[2017-02-18 16:32] VITALS: BP 143/87; TEMP 98.5; BMI 30.1
--- NOTE | 2017-02-18 17:38 | ED.PDOC ---
General ED Provider: Dr. BIPIN FOWLER Chief Complaint: Urinary Problem Stated Complaint: Seen here 4 days ago with inabilty to urinate x 1 day. Dx'd with UTI and placed on Macrodantin & pyridium. Still having same symptoms ( eased a little when on pyridium - out now), also diarrhea, abdominal bloating, and generalized abdominal pain. Time Seen by Physician: 17:33 Mode of Arrival: Walk-In Information Source: Patient Exam Limitations: No limitations [facility] and Triage Documentation Reviewed and Agree: Yes Complaint Exam - UTI Female Complaint/Exam Patient Complains of: Reports: Painful urination Onset/Duration: 5 days Symptoms Are: Still present Timing: Constant Initial Severity: Mild Current Severity: Severe Location of Pain: Reports: Diffuse, Suprapubic Associated Signs and Symptoms: Reports: Chills Patient Rh Status: Unknown Related History: Reports: Similar episode (see HPI) Related Surgical History: Reports: Hysterectomy CVA Tenderness: No Differential Diagnoses: Cystitis Review of Systems - Review Of Systems Constitutional: Reports: Chills Respiratory: Reports: No symptoms Cardiac: Reports: No symptoms GI: Reports: Abdominal pain (mild generalized abd pain), Diarrhea : Reports: Dysuria, Pain (denies any vaginal discharge,itching or burning) Musculoskeletal: Reports: No symptoms Skin: Reports: No symptoms Neurological: Reports: No symptoms All Other Systems: Reviewed and Negative Past Medical History - Past Medical History Previously Healthy: No Endocrine: Reports: DM 2 Cardiovascular: Reports: Hypertension Respiratory: Reports: COPD Hematological: Reports: None Gastrointestinal: Reports: Liver (ANEURYSM LIVER), GI Bleed, Diverticulitis, Other (gastroparesis,) Genitourinary: Reports: None Neuro/Psych: Reports: Depression, Other (FIBROMYALGIA) Musculoskeletal: Reports: Arthritis Cancer: Reports: Other (uterine, ovarian cancer, skin cancer) Last Menstrual Period: hysterectomy Other Pertinent Past Medical History: SLEEP APNEA- chronic pain- Yes: medical marijuana - Surgical History General Surgical History: Reports: Hysterectomy, Tubal ligation (TUBAL REVERSAL) , Cholecystectomy, Other (TUBAL REVERSAL), Unknown - Family History Family History: Reports: Unknown - Social History Smoking Status: Former smoker Hx Substance Use: Yes (medical marijuana) Alcohol Screening: None Lives: Alone - Immunizations Tetanus Shot up to Date: No Influenza Vaccine within 12 Months: No Pneumococcal Vaccine up to Date: No Physical Exam - Physical Exam Appearance: Well-appearing, No pain distress, Well-nourished Ill-appearing: None Pain Distress: None Respiratory: Airway patent, Breath sounds clear, Breath sounds equal, Respirations nonlabored Cardiovascular: RRR GI/: Soft, No masses, Bowel sounds normal, No Organomegaly, Tender (mild generalized tenderness of abdomen, no CVA tenderness) Musculoskeletal: Normal strength, ROM intact, No edema, No calf tenderness Skin: Warm, Dry, Normal color Neurological: Sensation intact, Motor intact, Reflexes intact, Cranial nerves intact, Alert, Oriented Psychiatric: Affect appropriate (somewhat pressured speech), Mood appropriate Critical Care Note - Critical Care Note Total Time (mins): 0 Course - Course Hematology/Chemistry: 02/18/17 17:50 02/18/17 17:50 Orders, Labs, Meds: Lab Review 02/18/17 02/18/17 02/18/17 17:40 17:50 17:50 WBC 9.02 RBC 4.60 Hgb 13.4 Hct 38.9 MCV 84.6 MCH 29.1 MCHC 34.4 RDW Coeff of Rosemarie 12.6 Plt Count 280 Immature Gran % (Auto) 0.3 Neut % (Auto) 49.0 Lymph % (Auto) 40.0 [place] % (Auto) 6.4 Eos % (Auto) 3.7 Baso % (Auto) 0.6 Immature Gran # (Auto) 0.0 Neut # 4.4 Lymph # 3.6 H [place] # 0.6 Eos # 0.3 Baso # 0.1 Sodium 138 Potassium 3.7 Chloride 105 Carbon Dioxide 25 Anion Gap 11.7 BUN 12 Creatinine 0.98 Estimated GFR (MDRD) 61.00 BUN/Creatinine Ratio 12.24 Glucose 128 H Calcium 9.0 Total Bilirubin 0.19 AST 11 L ALT 12 Alkaline Phosphatase 67 Total Protein 6.6 Albumin 3.4 Globulin 3.2 Albumin/Globulin Ratio 1.06 Urine Color Yellow Urine Clarity Clear Urine pH 5.5 Ur Specific [place] 1.020 Urine Protein 1+ Urine Glucose (UA) Negative Urine Ketones Negative Urine Blood Trace-lysed Urine Nitrite Negative Urine Bilirubin Negative Urine Urobilinogen 0.2 Ur Leukocyte Esterase Trace Urine Microscopic RBC 2-5 Urine Microscopic WBC 2-5 Ur Squamous Epith Cells Not present Urine Bacteria Trace Orders Category Date Time Status CBC W/ AUTO DIFF Stat LAB 02/18/17 17:50 Completed COMPREHENSIVE METABOLIC PANEL Stat LAB 02/18/17 17:50 Completed URINALYSIS C & S IF INDICATED Stat LAB 02/18/17 17:40 Completed Vital Signs: Temp Pulse Resp BP Pulse Ox 02/18/17 16:19 98.5 F 73 20 143/87 H 98 Departure - Departure Time of Disposition: 18:27 Disposition: HOME SELF-CARE Discharge Problem: Vaginitis Instructions: Vaginitis (ED) Condition: Good Pt referred to PMD for follow-up: No (see doctor if no better in 3 days) Allergies/Adverse Reactions: Allergies meperidine HCl [From Demerol] Allergy (Intermediate, Verified 02/18/17 16:29) itching ketorolac tromethamine [From Toradol] Adverse Reaction (Verified 02/18/17 16:29) morphine Adverse Reaction (Verified 02/18/17 16:29) Rash NSAIDS (Non-Steroidal Anti-Inflamma Adverse Reaction (Verified 02/18/17 16:29) Home Medications: Ambulatory Orders Albiglutide [Tanzeum] 50 mg SQ WEEKLY 07/27/15 Atorvastatin Calcium [Lipitor] 10 mg PO BEDTIME 07/27/15 Cyclobenzaprine HCl [Flexeril] 10 mg PO TID 07/27/15 Fluticasone Propionate [Flonase] 2 spray NS DAILY 07/27/15 Insulin Glargine,Hum.rec.anlog [Lantus Solostar] 14 unit SQ DAILY 07/27/15 Dicyclomine HCl [Bentyl] 10 mg PO TID 01/05/16 Docusate Sodium [Colace] 100 mg PO BID 01/05/16 Hydroxychloroquine Sulfate [Plaquenil] 400 mg PO DAILY 01/05/16 Sertraline HCl [Zoloft] 150 mg PO BEDTIME 01/05/16 Clonazepam [Klonopin] 0.5 mg PO TID 09/20/16 Diphenhydramine HCl [Benadryl] 25 mg PO QID PRN 09/20/16 Albuterol Sulfate [Proair Hfa] 8.5 gm IH QID PRN 10/29/16 Amlodipine Besylate [Norvasc] 5 mg PO DAILY 10/29/16 Dulaglutide [Trulicity] 1.5 mg SQ WEEKLY 10/29/16 Gabapentin 300 mg PO TID 10/29/16 Gemfibrozil [Lopid] 600 mg PO BID 10/29/16 Icosapent Ethyl [Vascepa] 1 gm PO DAILY 10/29/16 Omeprazole 40 mg PO DAILY 10/29/16 Valsartan/Hydrochlorothiazide [Diovan Hct 320-12.5 Mg Tab] 1 each PO DAILY 10/29 Vortioxetine Hydrobromide [Trintellix] 10 mg PO DAILY 10/29/16 Miconazole Nitrate [Monistat 3] 1 each VG DAILY #1 kit 02/18/17 Phenazopyridine HCl [Pyridium] 200 mg PO TID #6 tablet 02/18/17 Disposition Discussed With: Patient
[2017-02-18 17:51] LABS: BILIRUBIN,URINE Negative (NEGATIVE); KETONES,URINE Negative (NEGATIVE); LEUKOCYTE ESTERASE ,URINE Trace (NEGATIVE); NITRITE,URINE Negative (NEGATIVE); PH,URINE 5.5 (5-9); PROTEIN,URINE 1+ (NEGATIVE); URINE, BLOOD Trace-lysed (NEGATIVE)
[2017-02-18 17:54] LABS: ADD URINE MICROSCOPIC YES; BACTERIA,URINE TRACE (NOT PRESENT)
[2017-02-18 17:57] LABS: BASOPHILS # (AUTO) 0.1 K/uL (0-0.2); BASOPHILS % (AUTO) 0.6 % (0.0-3.0); EOSINOPHILS # (AUTO) 0.3 K/ul (0.0-0.7); EOSINOPHILS % (AUTO) 3.7 % (0.0-7.0); HEMATOCRIT 38.9 % (37.0-47.0); HEMOGLOBIN 13.4 g/dl (12.0-16.0); IMMATURE GRANULOCYTE % (AUTO) 0.3 % (0.0-5.0); LYMPHOCYTES # (AUTO) 3.6 K/uL (0.60-3.4); MEAN CORPUSCULAR HEMOGLOBIN 29.1 pg (27.0-31.0); MEAN CORPUSCULAR HGB CONC 34.4 (31.8-35.4); MEAN CORPUSCULAR VOLUME 84.6 fl (81.0-99.0); MONOCYTES # (AUTO) 0.6 K/uL (0.4-2.0); MONOCYTES % (AUTO) 6.4 (0-10); NEUTROPHILS # (AUTO) 4.4 K/ul (2.0-6.9); PLATELET COUNT 280 10^3/uL (140-440); WHITE BLOOD COUNT 9.02 K/ul (4.6-10.2)
[2017-02-18 18:16] LABS: ALBUMIN 3.4 g/dL (3.4-5.0); ALBUMIN/GLOBULIN RATIO 1.06; ANION GAP 11.7; BILIRUBIN,TOTAL 0.19 mg/dL (0.00-1.20); BUN/CREATININE RATIO 12.24; CREATININE 0.98 mg/dL (0.60-1.30); POTASSIUM 3.7 mmol/L (3.5-5.10); TOTAL PROTEIN 6.6 g/dL (6.4-8.2)
== END 2017-02-18 18:37 | disposition home or self-care (01) ==
LOC: ED 16:18
DX: N76.0 Acute vaginitis (principal); R10.84 Generalized abdominal pain; R19.7 Diarrhea, unspecified; E11.9 Type 2 diabetes mellitus without complications; I10 Essential (primary) hypertension; Z79.899 Other long term (current) drug therapy
CPT/HCPCS: 36415; 80053; 81001; 85025; 99283

== ENCOUNTER 2017-02-26 14:39 | Outpatient (CLI) | END 2017-02-26 14:40 | disposition home or self-care (01) | LOC: LAB 14:39 | PROVIDERS: ATTEND Emergency Medicine | DX: E11.9 Type 2 diabetes mellitus without complications (principal); J40 Bronchitis, not specified as acute or chronic; Z79.4 Long term (current) use of insulin | CPT/HCPCS: 36415; 83036; 87070 ==

== ENCOUNTER 2017-05-14 08:55 | Outpatient (CLI) ==
--- NOTE | 2017-05-14 10:31 | MRI ---
EXAM: MRI brain without IV contrast. DATE: 05/14/2017. HISTORY: Syncope and collapse. TECHNIQUE: Sagittal T1W, axial T2W, axial FLAIR, axial T1W, axial DWI, and coronal T2W GRE sequences of the brain were obtained using 1.2 Diamante magnet. No IV contrast. COMPARISON: CT head 02 August 2016. FINDINGS: The ventricles, cisterns, and subarachnoid spaces are normal in size and configuration. N o midline shift, mass effect or abnormal extra-axial fluid collection is apparent. No acute infarct, hemorrhage or neoplasm is identified. Minimal T2W/FLAIR hyperintensity is observed in the white mat ter abutting the anterior horn of each lateral ventricle. The baugh - white matter differentiation is normal. The 7th/8th cranial nerve complexes, cerebellopontine angles, brainstem, and visible cervic al spinal cord are normal. There is approximately 3.5 mm right and 2.5 mm left cerebellar tonsillar ectopia. The pituitary gland is slightly small in size. Corpus callosum is normal in size and confi guration. Flow voids are present in the major intracranial arteries and in the dural venous sinuses. No aneurysm, AVM or dural venous sinus thrombosis is apparent. No orbit abnormality is identified. Many right mastoid air cells have reticular pattern T2W bright, T1W intermediate signal. Left mast oid air cells are unremarkable. There is no acute sinusitis. No neck mass or lymphadenopathy is det ected. Significant thickening of the inner table of the frontal bone correlates with July 2016 CT s can. No calvarial malignancy or acute fracture is evident. IMPRESSIONS: 1. No acute infarct, hemorrhage, neoplasm or hydrocephalus. 2. Normal variation vs minor periventricular small vessel disease. 3. Minor low-lying cerebellar tonsils. No Chiari 1 malformation. 4. Slightly small pituitary gland. No pituitary lesion. 5. Marked, benign hyperostosis frontalis interna. 6. Minor right mastoid air cell disease.
== END 2017-05-14 08:56 | disposition home or self-care (01) ==
LOC: RAD 08:55
PROVIDERS: ATTEND Emergency Medicine
DX: R55 Syncope and collapse (principal); I10 Essential (primary) hypertension

== ENCOUNTER 2017-06-09 19:49 | Emergency (ER) ==
[2017-06-09 19:54] VITALS: BP 143/88; TEMP 99.1; BMI 29.7
--- NOTE | 2017-06-09 20:21 | ED.PDOC ---
General ED Provider: Dr. EDWARDO NOVAK Chief Complaint: Sore Throat Stated Complaint: Patient states that she was seen in the clinic and placed on Kelfex and steroids. She thought she ws told to comes to the ER since the Clinic was out of troat swabs. Time Seen by Physician: 20:00 Mode of Arrival: Walk-In Information Source: Patient Exam Limitations: No limitations Primary [facility] Nursing and Triage Documentation Reviewed and Agree: Yes Reviewed sepsis parameters & appropriate labs ordered?: Yes System Inflammatory Response Syndrome: Not Applicable Sepsis Protocol: For patient's 13 years and over: Temp is 96.8 and below OR 101 and greater Pulse >90 BPM Resp >20/minute Acutely Altered Mental Status Are patient's symptoms suggestive of a new infection, such as: -Pneumonia -Skin, Soft Tissue -Endocarditis -UTI -Bone, Joint Infection -Implantable Device -Acute Abdominal Infection -Wound Infection -Meningitis -Blood Stream Catheter Infection -Unknown System Inflammatory Response Syndrome: Not Applicable Review of Systems - Review Of Systems Constitutional: Reports: No symptoms Eyes: Reports: No symptoms Ears, Nose, Mouth, Throat: Reports: Throat pain Respiratory: Reports: No symptoms Cardiac: Reports: No symptoms GI: Reports: No symptoms : Reports: No symptoms Musculoskeletal: Reports: No symptoms Skin: Reports: No symptoms Neurological: Reports: No symptoms Endocrine: Reports: No symptoms Hematologic/Lymphatic: Reports: No symptoms All Other Systems: Reviewed and Negative Past Medical History - Past Medical History Previously Healthy: No Endocrine: Reports: DM 2 Cardiovascular: Reports: Hypertension Respiratory: Reports: COPD Hematological: Reports: None Gastrointestinal: Reports: Liver (ANEURYSM LIVER), GI Bleed, Diverticulitis, Other (gastroparesis,) Genitourinary: Reports: None Neuro/Psych: Reports: Depression, Other (FIBROMYALGIA) Musculoskeletal: Reports: Arthritis Cancer: Reports: Other (uterine, ovarian cancer, skin cancer) Last Menstrual Period: n/a Other Pertinent Past Medical History: SLEEP APNEA- chronic pain- Yes: medical marijuana - Surgical History General Surgical History: Reports: Hysterectomy, Tubal ligation (TUBAL REVERSAL) , Cholecystectomy, Other (TUBAL REVERSAL), Unknown - Family History Family History: Reports: Unknown - Social History Smoking Status: Former smoker Hx Substance Use: Yes (medical marijuana) Alcohol Screening: None - Immunizations Influenza Vaccine within 12 Months: No Pneumococcal Vaccine up to Date: No Physical Exam - Physical Exam Appearance: Well-appearing, Well-nourished Pain Distress: Mild Eyes: GLORIA, EOMI, Conjunctiva clear ENT: Ears normal, Nose normal, Oropharynx normal, Erythema Neck: Supple Respiratory: Airway patent, Rhonchi Cardiovascular: RRR, Pulses normal, No rub, No murmur Musculoskeletal: ROM intact, No edema Skin: Warm, Dry, Normal color Neurological: Sensation intact, Motor intact, Alert, Oriented Psychiatric: Affect appropriate, Mood appropriate Critical Care Note - Critical Care Note Total Time (mins): 0 Course - Course Vital Signs: Temp Pulse Resp BP Pulse Ox 06/09/17 19:50 99.1 F 80 20 143/88 H 93 L Departure - Departure Time of Disposition: 20:19 Disposition: HOME SELF-CARE Discharge Problem: Sore throat symptom Instructions: Pharyngitis (ED) Condition: Stable Pt referred to PMD for follow-up: Yes Additional Instructions: Continue antibiotics as prescribed Follow up with PC in 3 days Allergies/Adverse Reactions: Allergies meperidine HCl [From Demerol] Allergy (Intermediate, Verified 06/09/17 19:54) itching ketorolac tromethamine [From Toradol] Adverse Reaction (Verified 06/09/17 19:54) morphine Adverse Reaction (Verified 06/09/17 19:54) Rash NSAIDS (Non-Steroidal Anti-Inflamma Adverse Reaction (Verified 06/09/17 19:54) Home Medications: Ambulatory Orders Albiglutide [Tanzeum] 50 mg SQ WEEKLY 07/27/15 Atorvastatin Calcium [Lipitor] 10 mg PO BEDTIME 07/27/15 Cyclobenzaprine HCl [Flexeril] 10 mg PO TID 07/27/15 Fluticasone Propionate [Flonase] 2 spray NS DAILY 07/27/15 Insulin Glargine,Hum.rec.anlog [Lantus Solostar] 14 unit SQ DAILY 07/27/15 Dicyclomine HCl [Bentyl] 10 mg PO TID 01/05/16 Sertraline HCl [Zoloft] 150 mg PO BEDTIME 01/05/16 Clonazepam [Klonopin] 0.5 mg PO TID 09/20/16 Diphenhydramine HCl [Benadryl] 25 mg PO QID PRN 09/20/16 Albuterol Sulfate [Proair Hfa] 8.5 gm IH QID PRN 10/29/16 Amlodipine Besylate [Norvasc] 5 mg PO DAILY 10/29/16 Dulaglutide [Trulicity] 1.5 mg SQ WEEKLY 10/29/16 Gabapentin 300 mg PO TID 10/29/16 Omeprazole 40 mg PO DAILY 10/29/16 Vortioxetine Hydrobromide [Trintellix] 10 mg PO DAILY 10/29/16 Cephalexin [Keflex] 500 mg PO Q12HR 06/09/17 Prednisone 10 mg PO BIDWM 06/09/17 Disposition Discussed With: Patient
== END 2017-06-09 20:24 | disposition home or self-care (01) ==
LOC: ED 19:49
DX: J02.9 Acute pharyngitis, unspecified (principal)
CPT/HCPCS: 99282

== ENCOUNTER 2017-06-11 14:12 | Emergency (ER) ==
[2017-06-11 14:19] VITALS: BP 148/88; TEMP 98.4; BMI 28.8
[2017-06-11] MEDS ORDERED: XANAX PO STA (14:40)
--- NOTE | 2017-06-11 14:43 | ED.PDOC ---
General ED Provider: Dr. HALINA CREWS Chief Complaint: Non-specific Complaint Stated Complaint: Anxiety; multiple deathes of family members earlier in day. Time Seen by Physician: 14:38 Mode of Arrival: Ambulance Information Source: Patient Primary Care Provider: [facility] Nursing and Triage Documentation Reviewed and Agree: Yes Reviewed sepsis parameters & appropriate labs ordered?: Yes System Inflammatory Response Syndrome: Not Applicable Sepsis Protocol: For patient's 13 years and over: Temp is 96.8 and below OR 101 and greater Pulse >90 BPM Resp >20/minute Acutely Altered Mental Status Are patient's symptoms suggestive of a new infection, such as: -Pneumonia -Skin, Soft Tissue -Endocarditis -UTI -Bone, Joint Infection -Implantable Device -Acute Abdominal Infection -Wound Infection -Meningitis -Blood Stream Catheter Infection -Unknown Review of Systems - Review Of Systems Constitutional: Reports: No symptoms Respiratory: Reports: No symptoms Neurological: Reports: Anxiety, Emotional problems (tearful ) All Other Systems: Reviewed and Negative Past Medical History - Past Medical History Previously Healthy: No Endocrine: Reports: DM 2 Cardiovascular: Reports: Hypertension Respiratory: Reports: COPD Hematological: Reports: None Gastrointestinal: Reports: Liver (ANEURYSM LIVER), GI Bleed, Diverticulitis, Other (gastroparesis,) Genitourinary: Reports: None Neuro/Psych: Reports: Depression, Other (FIBROMYALGIA) Musculoskeletal: Reports: Arthritis Cancer: Reports: Other (uterine, ovarian cancer, skin cancer) Last Menstrual Period: n/a Other Pertinent Past Medical History: SLEEP APNEA- chronic pain- Yes: medical marijuana - Surgical History General Surgical History: Reports: Hysterectomy, Tubal ligation (TUBAL REVERSAL) , Cholecystectomy, Other (TUBAL REVERSAL), Unknown - Family History Family History: Reports: Unknown - Social History Smoking Status: Former smoker Hx Substance Use: Yes (medical marijuana) Alcohol Screening: None - Immunizations Influenza Vaccine within 12 Months: No Pneumococcal Vaccine up to Date: No Physical Exam - Physical Exam Appearance: Ill-appearing Ill-appearing: Mild (Tearful; sobbing) Eyes: GLORIA, EOMI Neck: Supple Respiratory: Airway patent, Breath sounds clear, Breath sounds equal Cardiovascular: RRR, Pulses normal GI/: Soft, Nontender Skin: Warm, Dry, Normal color Neurological: Sensation intact, Motor intact Psychiatric: Affect appropriate (for the circumstances), Mood appropriate Re-Evaluation - Re-Evaluation Time of Re-Evaluation: 15:05 Status: Improved Vital Signs Stable: Yes Appearance: Other (Very anxious; appropriate reaction to of two grand children and daughter in law this AM) Lungs: Clear Skin: Warm and Dry Neuro: Alert and Oriented X3 Critical Care Note - Critical Care Note Total Time (mins): 10 Course - Course Orders, Labs, Meds: Orders Category Date Time Status Alprazolam [Xanax] MEDS 06/11/17 14:40 Discontinued 1 mg PO ONCE STA Medications Discontinued Medications Generic Name Dose Route Start Last Admin Trade Name Kody PRN Reason Stop Dose Admin Alprazolam 1 mg 06/11/17 14:40 06/11/17 14:52 Xanax PO 06/11/17 14:41 1 mg ONCE STA Administration Vital Signs: Temp Pulse Resp BP Pulse Ox 06/11/17 14:13 98.4 F 98 H 30 H 148/88 H 99 Departure - Departure Time of Disposition: 15:05 Disposition: HOME SELF-CARE Discharge Problem: Anxiety as acute reaction to exceptional stress Instructions: Anxiety (ED) Condition: Stable Pt referred to PMD for follow-up: Yes (Call for appointment) IPMP verified?: No (No narcotic prescribed) Additional Instructions: Use your usual medications; follow up with primary care as needed. Allergies/Adverse Reactions: Allergies meperidine HCl [From Demerol] Allergy (Intermediate, Verified 06/11/17 14:44) itching ketorolac tromethamine [From Toradol] Adverse Reaction (Verified 06/11/17 14:44) morphine Adverse Reaction (Verified 06/11/17 14:44) Rash NSAIDS (Non-Steroidal Anti-Inflamma Adverse Reaction (Verified 06/11/17 14:44) Home Medications: Ambulatory Orders Albiglutide [Tanzeum] 50 mg SQ WEEKLY 07/27/15 Atorvastatin Calcium [Lipitor] 10 mg PO BEDTIME 07/27/15 Cyclobenzaprine HCl [Flexeril] 10 mg PO TID 07/27/15 Fluticasone Propionate [Flonase] 2 spray NS DAILY 07/27/15 Insulin Glargine,Hum.rec.anlog [Lantus Solostar] 14 unit SQ DAILY 07/27/15 Dicyclomine HCl [Bentyl] 10 mg PO TID 01/05/16 Sertraline HCl [Zoloft] 150 mg PO BEDTIME 01/05/16 Clonazepam [Klonopin] 0.5 mg PO TID 09/20/16 Diphenhydramine HCl [Benadryl] 25 mg PO QID PRN 09/20/16 Albuterol Sulfate [Proair Hfa] 8.5 gm IH QID PRN 10/29/16 Amlodipine Besylate [Norvasc] 5 mg PO DAILY 10/29/16 Dulaglutide [Trulicity] 1.5 mg SQ WEEKLY 10/29/16 Gabapentin 300 mg PO TID 10/29/16 Omeprazole 40 mg PO DAILY 10/29/16 Vortioxetine Hydrobromide [Trintellix] 10 mg PO DAILY 10/29/16 Cephalexin [Keflex] 500 mg PO Q12HR 06/09/17 Prednisone 10 mg PO BIDWM 06/09/17 Disposition Discussed With: Patient
== END 2017-06-11 15:16 | disposition home or self-care (01) ==
LOC: ED 14:12
DX: F41.1 Generalized anxiety disorder (principal); F43.0 Acute stress reaction; R55 Syncope and collapse; R06.4 Hyperventilation
CPT/HCPCS: 99283

== ENCOUNTER 2017-06-12 12:50 | Outpatient (CLI) ==
[2017-06-11 14:19] VITALS: BMI 28.8
--- NOTE | 2017-06-12 13:47 | DI ---
EXAM: LEFT KNEE. HISTORY: Knee pain FINDINGS: Left knee four view. There are postop changes suggesting previous ligamentous repair. Esteves rdware is intact without evidence of dislodgement or loosening. There is mild medial and lateral com partment osteoarthritis. No acute fracture or joint effusion is seen. Subtle calcification of the pr oximal aspect of the medial collateral ligament. Soft tissues were otherwise unremarkable. IMPRESSION: Arthritic changes. No acute findings.
== END 2017-06-12 12:51 | disposition home or self-care (01) ==
LOC: RAD 12:50
PROVIDERS: ATTEND Emergency Medicine
DX: M25.562 Pain in left knee (principal)

== ENCOUNTER 2017-08-08 14:10 | Outpatient (CLI) | END 2017-08-08 14:11 | disposition left against medical advice (07) | LOC: AMBL 14:10 | PROVIDERS: ATTEND Emergency Medicine | DX: F41.9 Anxiety disorder, unspecified (principal) ==

== ENCOUNTER 2017-12-17 11:42 | Observation (INO) ==
[2017-12-17 13:00] VITALS: BMI 26.6
[2017-12-17] MEDS ORDERED: SODIUM CHLORIDE 1,000 ML IV SCH (13:00)
[2017-12-17] MEDS ORDERED: ZOFRAN 4 MG/2 ML IVP PRN (13:00)
[2017-12-17] MEDS ORDERED: DEMEROL 100 MG/ML SYRINGE IVP PRN (13:00)
[2017-12-17] MEDS ORDERED: PROAIR HFA IH PRN (13:59)
[2017-12-17] MEDS ORDERED: NON-FORMULARY MEDICATION (Diazepam [Diazepam] 10 MG) PO PRN (13:59)
[2017-12-17] MEDS ORDERED: HYDROXYZINE PAMOATE 50 MG PO PRN (13:59)
[2017-12-17] MEDS ORDERED: BENADRYL PO PRN (13:59)
[2017-12-17] MEDS ORDERED: VALIUM PO PRN (14:48)
[2017-12-17] MEDS ORDERED: VISTARIL PO PRN (14:55)
[2017-12-17] MEDS: DILAUDID 2 MG/ML SYRINGE IVP PRN ×2 (15:09→23:49)
[2017-12-17] MEDS: KLONOPIN PO SCH ×2 (15:44→20:27)
[2017-12-17] MEDS: FLEXERIL PO SCH ×2 (15:44→20:27)
[2017-12-17] MEDS: LIBRIUM PO SCH ×3 (15:44→20:26)
[2017-12-17] MEDS: NEURONTIN PO SCH ×2 (15:45→20:27)
[2017-12-17] MEDS: BENTYL PO SCH ×2 (15:45→20:27)
[2017-12-17] MEDS ORDERED: K-DUR PO STA (16:37)
[2017-12-17] MEDS ORDERED: LOPRESSOR PO STA (16:41)
--- NOTE | 2017-12-17 18:31 | CT ---
EXAM: CT brain without contrast HISTORY: Head injury, elevated blood pressure TECHNIQUE: Multi-slice transaxial helical with coronal and sagital reformated images COMPARISON: None FINDINGS: The midline structures are central. The ventricles are neither dilated nor displaced. Th e brain attenuation with its baugh-white matter interface is normal. No acute intraparenchymal or extr aaxial hemorrhagic collections are detected. The calvarium is intact. The visible paranasal sinuses and mastoid air cells are clear. IMPRESSION: No acute intracranial process.
--- NOTE | 2017-12-17 19:18 | CT ---
EXAM: CT cervical spine without contrast HISTORY: Pain in neck, numbness down left arm TECHNIQUE: Multi-slice transaxial helical with coronal and sagittal reformatted views. 3-D volume re ndered images are provided. COMPARISON: None FINDINGS: The intervertebral joint spaces are maintained. The vertebrae have normal height and align ment. No acute fractures or lithesis are observed. The prevertebral soft tissues have normal width. The facet alignment is appropriate. There is no significant disc bulge, disc protrusion, or disc [place] iation. There is no neural foraminal narrowing. IMPRESSION: 1. No acute fracture or lithesis. 2. No significant spondylosis.
[2017-12-17] MEDS: LOPRESSOR PO SCH (20:26)
[2017-12-17] MEDS: CATAPRES PO SCH (20:27)
[2017-12-17] MEDS ORDERED: LIPITOR PO SCH (21:00)
[2017-12-17] MEDS ORDERED: ZOLOFT PO SCH (21:00)
[2017-12-17] MEDS ORDERED: NON-FORMULARY MEDICATION (Sertraline Hcl [Zoloft] 150 MG) PO SCH (21:00)
[2017-12-18] MEDS ORDERED: PRILOSEC PO SCH (06:30)
[2017-12-18] MEDS: CATAPRES PO SCH (08:43)
[2017-12-18] MEDS: NEURONTIN PO SCH (08:43)
[2017-12-18] MEDS: LIBRIUM PO SCH (08:44)
[2017-12-18] MEDS: KLONOPIN PO SCH (08:44)
[2017-12-18] MEDS: BENTYL PO SCH (08:44)
[2017-12-18] MEDS: LOPRESSOR PO SCH (08:44)
[2017-12-18] MEDS: FLEXERIL PO SCH (08:44)
[2017-12-18] MEDS: DILAUDID 2 MG/ML SYRINGE IVP PRN (08:45)
[2017-12-18] MEDS ORDERED: LANTUS SUBCUT SCH (09:00)
[2017-12-18] MEDS ORDERED: VORTIOXETINE HYDROBROMIDE 15 MG PO SCH (09:00)
[2017-12-18] MEDS ORDERED: CYMBALTA PO SCH (09:00)
[2017-12-18] MEDS ORDERED: NORVASC PO SCH (09:00)
[2017-12-18] MEDS ORDERED: INSULIN GLARGINE HUM REC ANLOG 14 UNIT SQ SCH (09:00)
[2017-12-18] MEDS ORDERED: FLONASE NAS SCH (09:00)
[2017-12-18] MEDS ORDERED: NON-FORMULARY MEDICATION (Omeprazole [Omeprazole] 40 MG) PO SCH (09:00)
[2017-12-18 11:12] VITALS: BP 98/67; TEMP 98.1
[2017-12-18] MEDS ORDERED: DECADRON 4 MG/ML SDV IM STA (13:15)
--- NOTE | 2017-12-18 16:59 | PCM.HOSP ---
- Observation Care Discharge [id number] OBS Care Discharge (81308): 12/18 - Initial Observation Care [id number] High Complexity 70 Minutes (19175): 12/17
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
[2017-12-26] MEDS ORDERED: NON-FORMULARY MEDICATION (Dulaglutide [Trulicity] 1.5 MG) SUBCUT SCH (09:00)
[2017-12-26] MEDS ORDERED: ALBIGLUTIDE 50 MG SUBCUT SCH (09:00)
== END 2017-12-18 14:25 | disposition home or self-care (01) ==
LOC: INTOOBSV 11:42 → MEDSURG A 11:42
PROVIDERS: ADMIT Emergency Medicine; ATTEND Emergency Medicine
DX: R51 Headache (principal); R07.89 Other chest pain; R53.83 Other fatigue; R19.7 Diarrhea, unspecified; R42 Dizziness and giddiness; F41.9 Anxiety disorder, unspecified
CPT/HCPCS: 36415; 80053; 80306; 81001; 82550; 84484; 85025; 93005; 93010; 99217; 99220

== ENCOUNTER 2018-02-11 14:59 | Outpatient (CLI) | END 2018-02-11 15:00 | disposition home or self-care (01) | LOC: FCC-LAB 14:59 | PROVIDERS: ATTEND Family Medicine | DX: R89.2 Abnormal level of other drugs, medicaments and biological substances in specimens from other organs, systems and tissues (principal) | CPT/HCPCS: 80306 ==

== ENCOUNTER 2018-03-21 21:51 | Emergency (ER) ==
[2018-03-21 21:59] VITALS: BP 123/85; TEMP 99.9; BMI 24.9
[2018-03-21] MEDS ORDERED: LACTATED RINGERS 1,000 ML IV STA (22:11)
[2018-03-21] MEDS ORDERED: DUONEB NEB STA (22:13)
--- NOTE | 2018-03-21 22:52 | ED.PDOC ---
General ED Provider: Dr. EDWARDO NOVAK Chief Complaint: Cough Stated Complaint: Patient present to the ER with a productive cough green sputum , body aches, chills, fever, weakness, not able to eat. State she got it from a family member. Time Seen by Physician: 22:10 Mode of Arrival: Wheelchair Information Source: Patient Exam Limitations: No limitations Primary Care Provider: VIRI HARRISON Nursing and Triage Documentation Reviewed and Agree: Yes Does patient meet sepsis criteria?: No System Inflammatory Response Syndrome: Not Applicable Sepsis Protocol: For patient's 13 years and over: Temp is 96.8 and below OR 101 and greater Pulse >90 BPM Resp >20/minute Acutely Altered Mental Status Are patient's symptoms suggestive of a new infection, such as: -Pneumonia -Skin, Soft Tissue -Endocarditis -UTI -Bone, Joint Infection -Implantable Device -Acute Abdominal Infection -Wound Infection -Meningitis -Blood Stream Catheter Infection -Unknown Review of Systems - Review Of Systems Constitutional: Reports: Chills, Fever, Other (body aches ) Eyes: Reports: No symptoms Ears, Nose, Mouth, Throat: Reports: No symptoms Respiratory: Reports: Cough Cardiac: Reports: No symptoms GI: Reports: Poor appetite : Reports: No symptoms Musculoskeletal: Reports: No symptoms Skin: Reports: No symptoms Neurological: Reports: No symptoms Endocrine: Reports: No symptoms Hematologic/Lymphatic: Reports: No symptoms All Other Systems: Reviewed and Negative Past Medical History - Past Medical History Previously Healthy: No Endocrine: Reports: DM 2 Cardiovascular: Reports: Hypertension Respiratory: Reports: COPD Hematological: Reports: None Gastrointestinal: Reports: Liver (ANEURYSM LIVER), GI Bleed, Diverticulitis, Other (gastroparesis,) Genitourinary: Reports: None Neuro/Psych: Reports: Depression, Other (FIBROMYALGIA) Musculoskeletal: Reports: Arthritis Cancer: Reports: Other (uterine, ovarian cancer, skin cancer) Last Menstrual Period: PT HAS HAD A HYSTERECTOMY Other Pertinent Past Medical History: SLEEP APNEA- chronic pain- Yes: medical marijuana - Surgical History General Surgical History: Reports: Hysterectomy, Tubal ligation (TUBAL REVERSAL) , Cholecystectomy, Other (TUBAL REVERSAL), Unknown - Family History Family History: Reports: Unknown - Social History Smoking Status: Current some day smoker Hx Substance Use: Yes (medical marijuana) Alcohol Screening: Occasionally - Immunizations Tetanus Shot up to Date: Yes Influenza Vaccine within 12 Months: No Pneumococcal Vaccine up to Date: No Physical Exam - Physical Exam Appearance: Well-appearing, No pain distress, Well-nourished Eyes: GLORIA, EOMI, Conjunctiva clear ENT: Ears normal, Nose normal, Oropharynx normal Respiratory: Airway patent, Breath sounds diminished, Respirations nonlabored Cardiovascular: RRR, Pulses normal, No rub, No murmur GI/: Soft, Nontender, No masses, Bowel sounds normal, No Organomegaly Musculoskeletal: Normal strength, ROM intact, No edema, No calf tenderness Skin: Warm, Dry, Normal color Neurological: Sensation intact, Motor intact, Reflexes intact, Cranial nerves intact, Alert, Oriented Psychiatric: Affect appropriate, Mood appropriate Critical Care Note - Critical Care Note Total Time (mins): 0 Course - Course Hematology/Chemistry: 03/21/18 22:25 03/21/18 22:25 Orders, Labs, Meds: Lab Review 03/21/18 03/21/18 03/21/18 22:25 22:25 22:25 WBC 16.16 H RBC 5.09 Hgb 15.0 Hct 44.2 MCV 86.8 MCH 29.5 MCHC 33.9 RDW Coeff of Rosemarie 12.7 Plt Count 305 Immature Gran % (Auto) 0.2 Neut % (Auto) 65.9 Lymph % (Auto) 23.4 [place] % (Auto) 7.0 Eos % (Auto) 3.1 Baso % (Auto) 0.4 Immature Gran # (Auto) 0.0 Neut # (Auto) 10.7 H Lymph # (Auto) 3.8 H [place] # (Auto) 1.1 Eos # (Auto) 0.5 Baso # (Auto) 0.1 Sodium 137.7 Potassium 3.60 Chloride 101.9 Carbon Dioxide 29.1 Anion Gap 10.30 BUN 9.4 Creatinine 0.87 Estimated GFR (MDRD) 69.00 BUN/Creatinine Ratio 10.80 Glucose 100.4 Lactic Acid Calcium 9.31 Total Bilirubin 0.68 AST 23.0 ALT 15.9 Alkaline Phosphatase 74.6 Total Protein 7.71 Albumin 4.58 Globulin 3.13 Albumin/Globulin Ratio 1.46 Procalcitonin < 0.05 03/21/18 22:25 WBC RBC Hgb Hct MCV MCH MCHC RDW Coeff of Rosemarie Plt Count Immature Gran % (Auto) Neut % (Auto) Lymph % (Auto) [place] % (Auto) Eos % (Auto) Baso % (Auto) Immature Gran # (Auto) Neut # (Auto) Lymph # (Auto) [place] # (Auto) Eos # (Auto) Baso # (Auto) Sodium Potassium Chloride Carbon Dioxide Anion Gap BUN Creatinine Estimated GFR (MDRD) BUN/Creatinine Ratio Glucose Lactic Acid 1.08 Calcium Total Bilirubin AST ALT Alkaline Phosphatase Total Protein Albumin Globulin Albumin/Globulin Ratio Procalcitonin Orders Category Date Time Status NEBULIZER TREATMENT Stat CARDIO 03/21/18 22:14 Completed ED APPLY O2 .ONCE EMERGENCY 03/21/18 22:11 Active ED PREFORMER IMPREGNATED FABRICS APPLIED .ONCE EMERGENCY 03/21/18 22:11 Active ED VITAL SIGNS Q1HR EMERGENCY 03/21/18 22:11 Active BLOOD CULTURE (ED ONLY) Stat LAB 03/21/18 22:25 Results CBC W/ AUTO DIFF Stat LAB 03/21/18 22:25 Completed COMPREHENSIVE METABOLIC PANEL Stat LAB 03/21/18 22:25 Completed LACTIC ACID Stat LAB 03/21/18 22:25 Completed PROCALCITONIN Stat LAB 03/21/18 22:25 Completed Azithromycin [Zithromax] MEDS 03/21/18 23:27 Discontinued 500 mg PO ONCE STA Ipratropium/Albuterol Neb [Duoneb] MEDS 03/21/18 22:13 Discontinued 1 vial NEB ONCE STA Methylprednisolone Sod Succ/Pf [Solu-Medrol 125 mg] MEDS 03/21/18 23:25 Discontinued 125 mg IM ONCE STA CHEST, 2 VIEWS PA & LAT Stat RADS 03/21/18 22:11 Completed Medications Discontinued Medications Generic Name Dose Route Start Last Admin Trade Name Corneliusq PRN Reason Stop Dose Admin Albuterol/Ipratropium 1 vial 03/21/18 22:13 03/21/18 22:29 Duoneb NEB 03/21/18 22:14 1 vial ONCE STA Administration Azithromycin 500 mg 03/21/18 23:27 03/21/18 23:49 Zithromax PO 03/21/18 23:28 500 mg ONCE STA Administration Methylprednisolone Sodium Succinate 125 mg 03/21/18 23:25 03/21/18 23:49 Solu-Medrol 125 Mg IM 03/21/18 23:26 125 mg ONCE STA Administration Vital Signs: Temp Pulse Resp BP Pulse Ox 03/21/18 21:52 99.9 F H 87 24 123/85 95 Departure - Departure Time of Disposition: 00:16 Disposition: HOME SELF-CARE Discharge Problem: Acute bronchitis Qualifiers: Bronchitis organism: other organism Qualified Code(s): J20.8 - Acute bronchitis due to other specified organisms Instructions: Acute Bronchitis (ED) Condition: Fair Pt referred to PMD for follow-up: Yes IPMP verified?: No Additional Instructions: Take medications as prescribed Follow up with PCP in 3 days Allergies/Adverse Reactions: Allergies azithromycin Allergy (Severe, Unverified 03/23/18 14:47) ANaphylactic meperidine HCl [From Demerol] Allergy (Intermediate, Verified 03/21/18 21:59) itching ketorolac tromethamine [From Toradol] Adverse Reaction (Verified 03/21/18 21:59) morphine Adverse Reaction (Verified 03/21/18 21:59) Rash NSAIDS (Non-Steroidal Anti-Inflamma Adverse Reaction (Verified 03/21/18 21:59) Home Medications: Ambulatory Orders Atorvastatin Calcium [Lipitor] 10 mg PO BEDTIME 07/27/15 Cyclobenzaprine HCl [Flexeril] 10 mg PO TID 07/27/15 Fluticasone Propionate [Flonase] 2 spray NS DAILY 07/27/15 Insulin Glargine,Hum.rec.anlog [Lantus Solostar] 14 unit SQ DAILY 07/27/15 Dicyclomine HCl [Bentyl] 10 mg PO TID 01/05/16 Sertraline HCl [Zoloft] 150 mg PO BEDTIME 01/05/16 Clonazepam [Klonopin] 0.5 mg PO TID 09/20/16 Diphenhydramine HCl [Benadryl] 25 mg PO QID PRN 09/20/16 Albuterol Sulfate [Proair Hfa] 8.5 gm IH QID PRN 10/29/16 Amlodipine Besylate [Norvasc] 5 mg PO DAILY 10/29/16 Gabapentin 300 mg PO TID 10/29/16 Omeprazole 40 mg PO DAILY 10/29/16 Vortioxetine Hydrobromide [Trintellix] 10 mg PO DAILY 10/29/16 Promethazine HCl [Phenergan Supp] 25 mg RC Q8H PRN 03/21/18 Disposition Discussed With: Patient, Family
[2018-03-21] MEDS ORDERED: SOLU-MEDROL 125 MG IM STA (23:25)
[2018-03-21] MEDS ORDERED: ZITHROMAX PO STA (23:27)
--- NOTE | 2018-03-22 07:44 | DI ---
EXAM: Chest two view, frontal and lateral views. HISTORY: Cough. COMPARISON: 07/27/2015. FINDINGS: The heart size is normal. There is no pulmonary vascular congestion. The lungs are clear . No pleural effusion or pneumothorax is seen. No acute osseous abnormality identified. Degenerati ve changes present in the spine. Cholecystectomy clips noted. Since the prior study, there has been no significant interval change. IMPRESSION: No acute cardiopulmonary process.
== END 2018-03-22 00:16 | disposition home or self-care (01) ==
LOC: ED 21:51
DX: J20.9 Acute bronchitis, unspecified (principal); E11.9 Type 2 diabetes mellitus without complications; I10 Essential (primary) hypertension; J44.9 Chronic obstructive pulmonary disease, unspecified; F17.210 Nicotine dependence, cigarettes, uncomplicated; Z79.899 Other long term (current) drug therapy
CPT/HCPCS: 36415; 80053; 83605; 84145; 85025; 87040; 94640; 96372; 99283

== ENCOUNTER 2018-03-23 15:30 | Outpatient (CLI) | END 2018-03-23 15:31 | disposition home or self-care (01) | LOC: FCC-LAB 15:30 | PROVIDERS: ATTEND Family Medicine | DX: E11.9 Type 2 diabetes mellitus without complications (principal) | CPT/HCPCS: 36415; 83037 ==

== ENCOUNTER 2018-03-24 09:47 | Outpatient (CLI) ==
--- NOTE | 2018-03-24 10:36 | MAMMO ---
EXAM: Bilateral digital diagnostic mammogram (2-D and 3-D) History: Inverted left nipple. Comparison: Bilateral mammogram 04/12/2058 Findings: MLO and CC views of bilateral breasts demonstrate scattered fibroglandular breast parenchy ma. There are no dominant masses, no suspicious microcalcifications and no architectural distortions . The left nipple is inverted. Impression: Inverted left nipple. Recommend further evaluation with left breast ultrasound behind t he nipple. BIRADS 0
--- NOTE | 2018-03-24 11:03 | US ---
EXAM: Left breast ultrasound. History: Inverted left nipple. Comparison: Bilateral mammogram 03/24/2018 Technique: Multiple sonographic images through the left breast were obtained. Color duplex Doppler was used to interrogate vascular flow. Findings: No masses, cysts or fluid collections are identified in the area of the left nipple. Impression: No sonographic abnormalities. Return to routine screening mammography schedule. BIRADS 2
== END 2018-03-24 09:48 | disposition home or self-care (01) ==
LOC: RAD 09:47
PROVIDERS: ATTEND Family Medicine
DX: N64.59 Other signs and symptoms in breast (principal)

== ENCOUNTER 2018-04-19 16:33 | Outpatient (CLI) | END 2018-04-19 16:34 | disposition home or self-care (01) | LOC: FCC-LAB 16:33 | PROVIDERS: ATTEND Family Medicine | DX: F14.90 Cocaine use, unspecified, uncomplicated (principal) | CPT/HCPCS: 80306 ==

== ENCOUNTER 2018-07-21 11:56 | Emergency (ER) | payer OTHER ==
[2018-07-21 12:01] VITALS: BP 156/99; TEMP 99.1; BMI 27.9
[2018-07-21] MEDS ORDERED: ANCEF IM STA (12:33)
--- NOTE | 2018-07-21 12:38 | ED.PDOC ---
General ED Provider: Dr. PRATEEK NOVA Chief Complaint: Sore Throat Stated Complaint: throat pain Time Seen by Physician: 12:00 Mode of Arrival: Walk-In Information Source: Patient Exam Limitations: No limitations Primary Care Provider: BIPIN ALMEIDA Nursing and Triage Documentation Reviewed and Agree: Yes Does patient meet sepsis criteria?: No System Inflammatory Response Syndrome: Not Applicable Sepsis Protocol: For patient's 13 years and over: Temp is 96.8 and below OR 101 and greater Pulse >90 BPM Resp >20/minute Acutely Altered Mental Status Are patient's symptoms suggestive of a new infection, such as: -Pneumonia -Skin, Soft Tissue -Endocarditis -UTI -Bone, Joint Infection -Implantable Device -Acute Abdominal Infection -Wound Infection -Meningitis -Blood Stream Catheter Infection -Unknown EENT Complaint Exam - Throat Complaint/Exam Symptoms Are: Still present Timimg: Intermittent Initial Severity: Moderate Current Severity: Mild Aggravating: Reports: Eating Alleviating: Reports: None Associated Signs and Symptoms: Reports: Dysphagia, Cough, Nasal congestion. Denies: Fever, Drooling, Foreign body sensation, Chills, Wheezing, Hoarseness, Sinus discomfort, Difficulty breathing, Lethargy, Irritability, Decreased activity, Vomiting, Diarrhea, Decreased hearing, Ear drainage Uvula Midline: Yes Diamante-tonsillar Fluctuence: No Scarlatinaform Rash Present: No Lesions: Absent: Lip, Gums, Tongue, Buccal Mucosa, Pharynx Exanthem: Absent: Lip, Gums, Tongue, Buccal Mucosa, Pharynx Vesicles: Absent: Lip, Gums, Tongue, Buccal Mucosa, Pharynx Stridor Present: No Sinus Tenderness Present: No Tonsillar Hypertrophy Present: No Tonsillar Exudate Present: No Diamante-tonsillar Swelling Present: No Differential Diagnoses: Pharyngitis Review of Systems - Review Of Systems Constitutional: Reports: Loss of appetite Eyes: Reports: No symptoms Ears, Nose, Mouth, Throat: Reports: Throat pain Respiratory: Reports: Cough Cardiac: Reports: No symptoms GI: Reports: No symptoms : Reports: No symptoms Musculoskeletal: Reports: No symptoms Skin: Reports: No symptoms Neurological: Reports: No symptoms Endocrine: Reports: No symptoms Hematologic/Lymphatic: Reports: No symptoms All Other Systems: Reviewed and Negative Past Medical History - Past Medical History Previously Healthy: No Endocrine: Reports: DM 2 Cardiovascular: Reports: Hypertension Respiratory: Reports: COPD Hematological: Reports: None Gastrointestinal: Reports: Liver (ANEURYSM LIVER), GI Bleed, Diverticulitis, Other (gastroparesis,) Genitourinary: Reports: None Neuro/Psych: Reports: Depression, Other (FIBROMYALGIA) Musculoskeletal: Reports: Arthritis Cancer: Reports: Other (uterine, ovarian cancer, skin cancer) Last Menstrual Period: NA Other Pertinent Past Medical History: SLEEP APNEA- chronic pain- Yes: medical marijuana - Surgical History General Surgical History: Reports: Hysterectomy, Tubal ligation (TUBAL REVERSAL) , Cholecystectomy, Other (TUBAL REVERSAL), Unknown - Family History Family History: Reports: Unknown - Social History Smoking Status: Current some day smoker Hx Substance Use: Yes (medical marijuana) Alcohol Screening: Occasionally - Immunizations Influenza Vaccine within 12 Months: No Pneumococcal Vaccine up to Date: No Physical Exam - Physical Exam Appearance: Well-appearing, No pain distress, Well-nourished Eyes: GLORIA, EOMI, Conjunctiva clear ENT: Erythema Respiratory: Airway patent, Breath sounds clear, Breath sounds equal, Respirations nonlabored Cardiovascular: RRR, Pulses normal, No rub, No murmur GI/: Soft, Nontender, No masses, Bowel sounds normal, No Organomegaly Musculoskeletal: Normal strength, ROM intact, No edema, No calf tenderness Skin: Warm, Dry, Normal color Neurological: Sensation intact, Motor intact, Reflexes intact, Cranial nerves intact, Alert, Oriented Psychiatric: Affect appropriate, Mood appropriate Critical Care Note - Critical Care Note Total Time (mins): 0 Course - Course Orders, Labs, Meds: Orders Category Date Time Status FLU A/B MOLECULAR Stat LAB 07/21/18 12:17 Received RAPID STREP SCREEN [MOLECULAR GROUP A STREP] Stat LAB 07/21/18 12:17 Completed Cefazolin Sodium [Ancef] MEDS 07/21/18 12:33 Stat 1 gm IM ONCE STA Medications Discontinued Medications Generic Name Dose Route Start Last Admin Trade Name Freq PRN Reason Stop Dose Admin Cefazolin Sodium 1 gm 07/21/18 12:33 Ancef IM 07/21/18 12:34 ONCE STA Vital Signs: Temp Pulse Resp BP Pulse Ox 07/21/18 11:58 99.1 F 78 16 156/99 H 97 Departure - Departure Time of Disposition: 12:38 Disposition: HOME SELF-CARE Discharge Problem: Streptococcal sore throat Instructions: Pharyngitis (ED), Strep Throat (ED) Condition: Good Pt referred to PMD for follow-up: Yes IPMP verified?: No Additional Instructions: Please call your Family Physician as soon as possible to schedule a follow-up appointment. Prescriptions: Amoxicillin 500 mg PO Q6HR #30 tablet Allergies/Adverse Reactions: Allergies azithromycin Allergy (Severe, Unverified 03/23/18 14:47) ANaphylactic meperidine HCl [From Demerol] Allergy (Intermediate, Verified 03/21/18 21:59) itching ketorolac tromethamine [From Toradol] Adverse Reaction (Verified 03/21/18 21:59) morphine Adverse Reaction (Verified 03/21/18 21:59) Rash NSAIDS (Non-Steroidal Anti-Inflamma Adverse Reaction (Verified 03/21/18 21:59) Home Medications: Ambulatory Orders Atorvastatin Calcium [Lipitor] 10 mg PO BEDTIME 07/27/15 Cyclobenzaprine HCl [Flexeril] 10 mg PO TID 07/27/15 Fluticasone Propionate [Flonase] 2 spray NS DAILY 07/27/15 Insulin Glargine,Hum.rec.anlog [Lantus Solostar] 14 unit SQ DAILY 07/27/15 Dicyclomine HCl [Bentyl] 10 mg PO TID 01/05/16 Sertraline HCl [Zoloft] 150 mg PO BEDTIME 01/05/16 Clonazepam [Klonopin] 0.5 mg PO TID 09/20/16 Diphenhydramine HCl [Benadryl] 25 mg PO QID PRN 09/20/16 Albuterol Sulfate [Proair Hfa] 8.5 gm IH QID PRN 10/29/16 Amlodipine Besylate [Norvasc] 5 mg PO DAILY 10/29/16 Gabapentin 300 mg PO TID 10/29/16 Omeprazole 40 mg PO DAILY 10/29/16 Vortioxetine Hydrobromide [Trintellix] 10 mg PO DAILY 10/29/16 Promethazine HCl [Phenergan Supp] 25 mg RC Q8H PRN 03/21/18 Amoxicillin 500 mg PO Q6HR #30 tablet 07/21/18
[2018-07-21] MEDS ORDERED: MORPHINE 2 MG/ML SYRINGE IM STA (12:47)
[2018-07-21] MEDS ORDERED: ZOFRAN 4 MG/2 ML IM STA (12:47)
[2018-07-21] MEDS ORDERED: DILAUDID 0.5 MG/0.5 ML SYRINGE IM STA (12:48)
--- NOTE | 2018-07-21 13:23 | CT ---
EXAM: CT of the soft tissue neck without contrast History: Neck pain, difficulty swallowing, worse on the right side. Technique: Multiplanar CT images through the soft tissue neck were obtained following administration of IV contrast Findings: The upper lungs are clear. No acute osseous abnormalities. The visualized paranasal sinu ses and mastoid air cells are clear in general. Orbits are intact. The visualized intracranial cont ents demonstrate no grossly acute findings. Parotid glands are unremarkable. There is inflammation and edema involving the right palatine tonsil and there is thickening of the right side of the epiglo ttis. The inflammation is extending to involve the right submandibular gland and there are mildly en larged lymph nodes within the right neck. No discrete thyroid nodules are identified by CT. Impression: Enlarged edematous right palatine tonsil with enlargement of the right side of the epigl ottis. The findings are most likely infectious. Recommend further evaluation with IV contrast enhan teodora study to evaluate for any underlying abscess.
[2018-07-21] MEDS ORDERED: SODIUM CHLORIDE 1,000 ML IV STA (13:32)
--- NOTE | 2018-07-21 15:00 | CT ---
EXAM: CT NECK HISTORY: Difficulty swallowing, concern for abscess. Right-sided swelling. TECHNIQUE: CT neck with intravenous contrast. 3-mm axial sections. Coronal and sagittal reformatio ns. 75 ml Omnipaque FINDINGS: Compared to 12/17/2017 CT cervical spine. There is bilateral parapharyngeal tonsillar enlargement and hyperemia, more noticeable on the right. There is also thickening of the right aspect of the epiglottis. Both of these findings are new sinc e the prior CT. No well-defined abscess is seen. There is no significant impingement upon the airwa y patency identified by CT, correlate clinically. There are prominent bilateral cervical lymph nodes especially on the right probably indicating lymphadenitis, less likely lymphadenopathy. These measu re up to about 11 mm short axis. Salivary glands are within normal limits. Vascular structures are within normal limits. Thyroid gland appears normal. Vascular structures are normal for age. IMPRESSION: 1. Moderate parapharyngeal tonsillitis without defined abscess. There is mild thickening in the rig ht aspect of the epiglottis. No significant impingement upon the airway is currently seen by CT. 2. Cervical lymphadenitis.
[2018-07-21] MEDS ORDERED: DECADRON 4 MG/ML SDV IM STA (15:38)
[2018-07-21] MEDS ORDERED: DECADRON 4 MG/ML SDV IVP STA (15:42)
== END 2018-07-21 16:09 | disposition home or self-care (01) ==
LOC: ED 11:56
DX: J02.9 Acute pharyngitis, unspecified (principal); R07.0 Pain in throat; R13.10 Dysphagia, unspecified; R05 Cough; R09.81 Nasal congestion; R63.0 Anorexia; A49.1 Streptococcal infection, unspecified site
CPT/HCPCS: 36415; 80053; 85025; 87502; 87651; 96361; 96372; 96374; 99283

== ENCOUNTER 2018-09-02 08:09 | Emergency (ER) ==
[2018-09-02 08:14] VITALS: BP 142/98; TEMP 97.8; BMI 29.2
--- NOTE | 2018-09-02 08:57 | ED.PDOC ---
General ED Provider: Dr. CHRISTIN DUMONT Chief Complaint: Sore Throat Stated Complaint: Recurrent sore throat. The patient states that she has been bothered with recurrent sore throat. She was diagnosed onf Jul 21, 2018 with strep tonsillitins. Indicated she continues to remain symptomatic and as well left ear is hurting, feel full and like it was going to rupture yesterday. A imaging study was obtained and the CT scan neck soft tissues revealed moderate inflamatory changes of tonsils and pharyngitis but no discrete abscess There was thickening along the right aspect of the epiglotitis. No impingement of the airwary was identified. Now c/o sore throat again and not able to swallow. Stated has seen Dr. Almeida who is going to refer her to a ENT specialist for evaluation in [place] since Dr Sumner locally does not see critical access hospital states . Time Seen by Physician: 08:30 Mode of Arrival: Walk-In Information Source: Patient Exam Limitations: No limitations Primary Care Provider: BIPIN ALMEIDA Nursing and Triage Documentation Reviewed and Agree: Yes Does patient meet sepsis criteria?: No System Inflammatory Response Syndrome: Not Applicable Sepsis Protocol: For patient's 13 years and over: Temp is 96.8 and below OR 101 and greater Pulse >90 BPM Resp >20/minute Acutely Altered Mental Status Are patient's symptoms suggestive of a new infection, such as: -Pneumonia -Skin, Soft Tissue -Endocarditis -UTI -Bone, Joint Infection -Implantable Device -Acute Abdominal Infection -Wound Infection -Meningitis -Blood Stream Catheter Infection -Unknown EENT Complaint Exam - Ear Complaint/Exam Onset/Duration: several days ago Symptoms Are: Still present Timing: Constant Initial Severity: Moderate Current Severity: Moderate Character: Reports: Dull pain, Aching pain Aggravating: Reports: Tugging on ear, Position Alleviating: Reports: None Associated Signs and Symptoms: Reports: Sore throat, Pain to external ear. Denies: Ear trauma, Ear swelling, Discharge, Fever, Hearing loss, Bleeding, Headache, URI symptoms, Foreign body sensation, Rash, Pain to external face Related History: Denies: Similar Episode Ear Surgical History: None Vesicles to External Pinna: No Vesicles to Tragus: No TMJ Tenderness: None Mastoid Tenderness: None Tragal Tenderness: None External Canal: Erythema Material in Canal: Present: Cerumen Tympanic Membrane: Erythema, Bulging Differential Diagnoses: Otitis Media, Pharyngitis, Serous Otitis - Throat Complaint/Exam Onset/Duration: 2 days Symptoms Are: Still present Timimg: Constant Initial Severity: Moderate Current Severity: Moderate Aggravating: Reports: Eating Alleviating: Reports: None Associated Signs and Symptoms: Reports: Dysphagia Related History: Reports: Similar Episode Uvula Midline: Yes Diamante-tonsillar Fluctuence: Yes Scarlatinaform Rash Present: No Lesions: Absent: Lip, Pharynx Exanthem: Absent: Lip, Pharynx Stridor Present: No Sinus Tenderness Present: No Tonsillar Hypertrophy Present: No Tonsillar Exudate Present: No Diamante-tonsillar Swelling Present: No Adenopathy Present: No Splenomegaly Present: No Differential Diagnoses: Laryngitis, Pharyngitis, Tonsillitis Review of Systems - Review Of Systems Constitutional: Reports: No symptoms Eyes: Reports: No symptoms Ears, Nose, Mouth, Throat: Reports: No symptoms Respiratory: Reports: No symptoms Cardiac: Reports: No symptoms GI: Reports: No symptoms : Reports: No symptoms Musculoskeletal: Reports: No symptoms Skin: Reports: No symptoms Neurological: Reports: No symptoms Endocrine: Reports: No symptoms Hematologic/Lymphatic: Reports: No symptoms All Other Systems: Reviewed and Negative Past Medical History - Past Medical History Previously Healthy: No Endocrine: Reports: DM 2 Cardiovascular: Reports: Hypertension Respiratory: Reports: COPD Hematological: Reports: None Gastrointestinal: Reports: Liver (ANEURYSM LIVER), GI Bleed, Diverticulitis, Other (gastroparesis,) Genitourinary: Reports: None Neuro/Psych: Reports: Anxiety, Depression, Other (FIBROMYALGIA; Cocaine use) Musculoskeletal: Reports: Arthritis, Other (Fibromyalgia) Cancer: Reports: Other (uterine, ovarian cancer, skin cancer) Last Menstrual Period: n/a Other Pertinent Past Medical History: SLEEP APNEA- chronic pain- Yes: medical marijuana - Surgical History General Surgical History: Reports: Hysterectomy, Tubal ligation (TUBAL REVERSAL) , Cholecystectomy, Other (TUBAL REVERSAL), Unknown - Family History Family History: Reports: Unknown - Social History Smoking Status: Current some day smoker Hx Substance Use: Yes (medical marijuana) Alcohol Screening: Occasionally - Immunizations Influenza Vaccine within 12 Months: No Pneumococcal Vaccine up to Date: No Physical Exam - Physical Exam Appearance: Well-appearing, No pain distress, Well-nourished, Obese Ill-appearing: Mild Pain Distress: Mild Eyes: GLORIA, EOMI, Conjunctiva clear ENT: Ears normal, Nose normal, Oropharynx normal, Erythema (pharynx, lt tm) Neck: Supple (tender subtonsillar lymphadenopathy;no masses) Respiratory: Airway patent, Breath sounds clear, Breath sounds equal, Respirations nonlabored Cardiovascular: RRR, Pulses normal, No rub, No murmur GI/: Soft, Nontender, No masses, Bowel sounds normal, No Organomegaly Musculoskeletal: Normal strength, ROM intact, No edema, No calf tenderness Skin: Warm, Dry, Normal color Neurological: Sensation intact, Motor intact, Reflexes intact, Cranial nerves intact, Alert, Oriented Psychiatric: Affect appropriate, Mood appropriate Interpretation - Radiology Interpretation Radiology Interpretation By: Radiologist Radiology Results: Negative (NO acute inflamation or abscess) Critical Care Note - Critical Care Note Total Time (mins): 60 Course - Course Hematology/Chemistry: 09/02/18 09:00 09/02/18 09:00 Vital Signs: Temp Pulse Resp BP Pulse Ox 09/02/18 08:10 97.8 F 74 20 142/98 H 96 Departure - Departure Time of Disposition: 10:45 Disposition: HOME SELF-CARE Discharge Problem: Acute streptococcal pharyngitis, Otitis Instructions: Strep Throat (ED) Condition: Good Pt referred to PMD for follow-up: Yes (1 wk) IPMP verified?: No Additional Instructions: Take meds Good oral hygeing Finish oral antibiotics see pcpin 1 wk Allergies/Adverse Reactions: Allergies azithromycin Allergy (Severe, Verified 09/02/18 08:14) Anaphylaxis ANaphylactic meperidine HCl [From Demerol] Allergy (Intermediate, Verified 09/02/18 08:14) itching ketorolac tromethamine [From Toradol] Adverse Reaction (Verified 09/02/18 08:14) morphine Adverse Reaction (Verified 09/02/18 08:14) Rash NSAIDS (Non-Steroidal Anti-Inflamma Adverse Reaction (Verified 09/02/18 08:14) Home Medications: Ambulatory Orders Atorvastatin Calcium [Lipitor] 10 mg PO BEDTIME 07/27/15 Cyclobenzaprine HCl [Flexeril] 10 mg PO TID 07/27/15 Fluticasone Propionate [Flonase] 2 spray NS DAILY 07/27/15 Insulin Glargine,Hum.rec.anlog [Lantus Solostar] 14 unit SQ DAILY 07/27/15 Sertraline HCl [Zoloft] 150 mg PO BEDTIME 01/05/16 Clonazepam [Klonopin] 0.5 mg PO TID 09/20/16 Disposition Discussed With: Patient, Family
--- NOTE | 2018-09-02 10:37 | CT ---
EXAM: CT NECK HISTORY: Recurrent sore throat, difficulty swallowing TECHNIQUE: CT neck with intravenous contrast. 3-mm axial sections. Coronal and sagittal reformatio ns. 75 ml Omnipaque FINDINGS: Compared to 07/29/2018. Exam demonstrates grossly normal tonsillar contours with no evidence of asymmetric tonsillar enlargem ent or encroachment upon the oropharyngeal airway. There is no parapharyngeal abscess identified. T he epiglottis appears normal on today's exam. There is no lymphadenopathy. Salivary and thyroid gla nds are within normal limits. Paranasal sinuses are clear. Mastoid air cells are aerated. The bone s have no acute abnormality. Upper lung low are clear. IMPRESSION: 1. No CT evidence of abnormal tonsillar contour, tonsillitis or parapharyngeal abscess.
== END 2018-09-02 11:02 | disposition home or self-care (01) ==
LOC: ED 08:09
DX: J02.0 Streptococcal pharyngitis (principal); H66.90 Otitis media, unspecified, unspecified ear; F17.210 Nicotine dependence, cigarettes, uncomplicated
CPT/HCPCS: 36415; 80053; 85025; 86308; 87502; 87651; 99283

== ENCOUNTER 2018-09-06 16:34 | Outpatient (CLI) | END 2018-09-06 16:35 | disposition home or self-care (01) | LOC: LAB 16:34 | PROVIDERS: ATTEND Family Medicine | DX: R73.9 Hyperglycemia, unspecified (principal); J03.90 Acute tonsillitis, unspecified | CPT/HCPCS: 36415; 83036; 87651 ==

== ENCOUNTER 2018-09-09 11:08 | Outpatient (CLI) ==
[2018-09-09 11:21] VITALS: BP 131/93; TEMP 98
[2018-09-09] MEDS ORDERED: BICILLIN L-A IM STA ×2 (11:25→11:28)
== END 2018-09-09 11:09 | disposition home or self-care (01) ==
LOC: OPMED 11:08
PROVIDERS: ATTEND Family Medicine
DX: J03.01 Acute recurrent streptococcal tonsillitis (principal)
CPT/HCPCS: 96372

== ENCOUNTER 2018-09-17 08:44 | Outpatient (CLI) | END 2018-09-17 08:45 | disposition home or self-care (01) | LOC: RHC-LAB 08:44 → FCC-LAB 08:45 | PROVIDERS: ATTEND Family Medicine | DX: Z51.81 Encounter for therapeutic drug level monitoring (principal); Z79.899 Other long term (current) drug therapy | CPT/HCPCS: 80306 ==

== ENCOUNTER 2018-11-11 03:53 | Emergency (ER) ==
[2018-11-11 04:02] VITALS: BP 132/95; TEMP 99.2; BMI 27.3
--- NOTE | 2018-11-11 04:22 | ED.PDOC ---
General ED Provider: Dr. CHRISTIN BANSAL-ER Chief Complaint: Rash Stated Complaint: oniel got this rash with temp 101 Time Seen by Physician: 04:00 Mode of Arrival: Walk-In Information Source: Patient Exam Limitations: No limitations Primary Care Provider: BIPIN ALMEIDA Nursing and Triage Documentation Reviewed and Agree: Yes Does patient meet sepsis criteria?: No System Inflammatory Response Syndrome: Not Applicable Sepsis Protocol: For patient's 13 years and over: Temp is 96.8 and below OR 101 and greater Pulse >90 BPM Resp >20/minute Acutely Altered Mental Status Are patient's symptoms suggestive of a new infection, such as: -Pneumonia -Skin, Soft Tissue -Endocarditis -UTI -Bone, Joint Infection -Implantable Device -Acute Abdominal Infection -Wound Infection -Meningitis -Blood Stream Catheter Infection -Unknown Skin Complaint Exam - Skin Rash/Itching Complaint/Exam Onset/Duration: 24hrs Symptoms Are: Still present Initial Severity: Mild Current Severity: Mild Location: left forehead and left cheek Potential Exposures: Reports: Plants Aggravating: Reports: None Alleviating: Reports: None Associated Signs and Symptoms: Reports: Fever, Chills. Denies: Difficulty breathing Skin Findings: Present: Maculae Differential Diagnoses: Allergic Reaction, Contact Dermatitis, Poison [place], Other Review of Systems - Review Of Systems Constitutional: Reports: No symptoms Eyes: Reports: No symptoms Ears, Nose, Mouth, Throat: Reports: No symptoms Respiratory: Reports: No symptoms Cardiac: Reports: No symptoms GI: Reports: No symptoms : Reports: No symptoms Musculoskeletal: Reports: No symptoms Skin: Reports: Rash Neurological: Reports: No symptoms Endocrine: Reports: No symptoms Hematologic/Lymphatic: Reports: No symptoms All Other Systems: Reviewed and Negative Past Medical History - Past Medical History Previously Healthy: No Endocrine: Reports: DM 2 Cardiovascular: Reports: Hypertension Respiratory: Reports: COPD Hematological: Reports: None Gastrointestinal: Reports: Liver (ANEURYSM LIVER), GI Bleed, Diverticulitis, Other (gastroparesis,) Genitourinary: Reports: None Neuro/Psych: Reports: Anxiety, Depression, Other (FIBROMYALGIA; Cocaine use) Musculoskeletal: Reports: Arthritis, Other (Fibromyalgia) Cancer: Reports: Other (uterine, ovarian cancer, skin cancer) Last Menstrual Period: PT HAS HAD A HYSTERECTOMY Other Pertinent Past Medical History: SLEEP APNEA- chronic pain- Yes: medical marijuana - Surgical History General Surgical History: Reports: Hysterectomy, Tubal ligation (TUBAL REVERSAL) , Cholecystectomy, Other (TUBAL REVERSAL), Unknown - Family History Family History: Reports: Unknown - Social History Smoking Status: Never smoker Hx Substance Use: Yes (medical marijuana) Alcohol Screening: Occasionally - Immunizations Tetanus Shot up to Date: Yes Influenza Vaccine within 12 Months: No Pneumococcal Vaccine up to Date: No Physical Exam - Physical Exam Appearance: Well-appearing, No pain distress, Well-nourished Eyes: GLORIA, EOMI, Conjunctiva clear ENT: Ears normal, Nose normal, Oropharynx normal Neck: Supple Respiratory: Airway patent, Breath sounds clear, Breath sounds equal, Respirations nonlabored Cardiovascular: RRR, Pulses normal, No rub, No murmur GI/: Soft, Nontender, No masses, Bowel sounds normal, No Organomegaly Musculoskeletal: Normal strength, ROM intact, No edema, No calf tenderness Skin: Warm, Dry, Normal color (noted macular erythema over right forehead, right cheek) Neurological: Sensation intact, Motor intact, Reflexes intact, Cranial nerves intact, Alert, Oriented Psychiatric: Affect appropriate, Mood appropriate Critical Care Note - Critical Care Note Total Time (mins): 0 Course - Course Orders, Labs, Meds: this has the appearnce of facial cellulitis but interesting it began after mowing the yard---?component of contact dermaitis Vital Signs: Temp Pulse Resp BP Pulse Ox 11/11/18 03:54 99.2 F 66 20 132/95 H 96 Departure - Departure Time of Disposition: 04:23 Disposition: HOME SELF-CARE Discharge Problem: Cellulitis of face Instructions: Cellulitis (ED) Condition: Good Pt referred to PMD for follow-up: Yes IPMP verified?: No Additional Instructions: f/u wiht pcp if not improving Prescriptions: Clindamycin HCl [Cleocin HCl] 300 mg PO QID #30 capsule Prednisone 10 mg PO DIRECTED #16 tablet Allergies/Adverse Reactions: Allergies azithromycin Allergy (Severe, Verified 11/11/18 04:02) Anaphylaxis ANaphylactic meperidine HCl [From Demerol] Allergy (Intermediate, Verified 11/11/18 04:02) itching ketorolac tromethamine [From Toradol] Adverse Reaction (Verified 11/11/18 04:02) morphine Adverse Reaction (Verified 11/11/18 04:02) Rash NSAIDS (Non-Steroidal Anti-Inflamma Adverse Reaction (Verified 11/11/18 04:02) Home Medications: Ambulatory Orders Amlodipine Besylate [Norvasc] 5 mg PO DAILY 09/09/18 Clindamycin HCl [Cleocin HCl] 300 mg PO QID #30 capsule 11/11/18 Prednisone 10 mg PO DIRECTED #16 tablet 11/11/18 Disposition Discussed With: Patient
== END 2018-11-11 04:35 | disposition home or self-care (01) ==
LOC: ED 03:53
DX: L03.211 Cellulitis of face (principal)
CPT/HCPCS: 99282

== ENCOUNTER 2018-11-17 16:53 | Emergency (ER) ==
[2018-11-17 16:57] VITALS: BP 129/83; TEMP 98.5; BMI 29.7
--- NOTE | 2018-11-17 17:14 | ED.PDOC ---
General ED Provider: Dr. PRATEEK NOVA Chief Complaint: Finger Laceration Stated Complaint: laceration right index Time Seen by Physician: 17:00 (see photos) Mode of Arrival: Walk-In Information Source: Patient Exam Limitations: No limitations Nursing and Triage Documentation Reviewed and Agree: Yes Does patient meet sepsis criteria?: No System Inflammatory Response Syndrome: Not Applicable Sepsis Protocol: For patient's 13 years and over: Temp is 96.8 and below OR 101 and greater Pulse >90 BPM Resp >20/minute Acutely Altered Mental Status Are patient's symptoms suggestive of a new infection, such as: -Pneumonia -Skin, Soft Tissue -Endocarditis -UTI -Bone, Joint Infection -Implantable Device -Acute Abdominal Infection -Wound Infection -Meningitis -Blood Stream Catheter Infection -Unknown Skin Complaint Exam - Lac/Torso/Upper Ext. Complaint/Exam Location of Injury: Right (index) Mechanism of Injury: Laceration Onset/Duration: today Symptoms Are: Still present Initial Severity: Mild Current Severity: Mild Aggravating: None Alleviating: None Associated Signs and Symptoms: Denies: Fever, Chills, Erythema, Numbness, Tingling Differential Diagnoses: Laceration Review of Systems - Review Of Systems Constitutional: Reports: No symptoms Eyes: Reports: No symptoms Ears, Nose, Mouth, Throat: Reports: No symptoms Respiratory: Reports: No symptoms Cardiac: Reports: No symptoms GI: Reports: No symptoms : Reports: No symptoms Musculoskeletal: Reports: No symptoms Skin: Reports: Other (laceration finger ) Neurological: Reports: No symptoms Endocrine: Reports: No symptoms Hematologic/Lymphatic: Reports: No symptoms All Other Systems: Reviewed and Negative Past Medical History - Past Medical History Previously Healthy: No Endocrine: Reports: DM 2 Cardiovascular: Reports: Hypertension Respiratory: Reports: COPD Hematological: Reports: None Gastrointestinal: Reports: Liver (ANEURYSM LIVER), GI Bleed, Diverticulitis, Other (gastroparesis,) Genitourinary: Reports: None Neuro/Psych: Reports: Anxiety, Depression, Other (FIBROMYALGIA; Cocaine use) Musculoskeletal: Reports: Arthritis, Other (Fibromyalgia) Cancer: Reports: Other (uterine, ovarian cancer, skin cancer) Last Menstrual Period: n/a Other Pertinent Past Medical History: SLEEP APNEA- chronic pain- Yes: medical marijuana - Surgical History General Surgical History: Reports: Hysterectomy, Tubal ligation (TUBAL REVERSAL) , Cholecystectomy, Other (TUBAL REVERSAL), Unknown - Family History Family History: Reports: Unknown - Social History Smoking Status: Never smoker Hx Substance Use: Yes (medical marijuana) Alcohol Screening: Occasionally - Immunizations Influenza Vaccine within 12 Months: No Pneumococcal Vaccine up to Date: No Physical Exam - Physical Exam Appearance: Well-appearing, No pain distress, Well-nourished Eyes: GLORIA, EOMI, Conjunctiva clear ENT: Ears normal, Nose normal, Oropharynx normal Respiratory: Airway patent, Breath sounds clear, Breath sounds equal, Respirations nonlabored Cardiovascular: RRR, Pulses normal, No rub, No murmur GI/: Soft, Nontender, No masses, Bowel sounds normal, No Organomegaly Musculoskeletal: Normal strength, ROM intact, No edema, No calf tenderness Skin: Warm, Dry (3mm laceration see photos) Neurological: Sensation intact, Motor intact, Reflexes intact, Cranial nerves intact, Alert, Oriented Psychiatric: Affect appropriate, Mood appropriate Procedures - Laceration/Wound Repair No standard instances Wound Description: Flap Wound Length (cm): 3mm Wound Width: 1mm Wound Depth: 1mm Wound Explored: Clean Wound Irrigated: Yes Wound Prep: Saline, Hibiclens Wound Repaired With: Dermabond (see photos) Critical Care Note - Critical Care Note Total Time (mins): 0 Course - Course Vital Signs: Temp Pulse Resp BP Pulse Ox 11/17/18 16:54 98.5 F 75 20 129/83 96 Departure - Departure Time of Disposition: 17:14 Disposition: HOME SELF-CARE Discharge Problem: Laceration of finger Instructions: Finger Laceration (ED), Acute Wounds (ED) Condition: Good Pt referred to PMD for follow-up: Yes IPMP verified?: No Additional Instructions: Please call your Family Physician as soon as possible to schedule a follow-up appointment. Allergies/Adverse Reactions: Allergies azithromycin Allergy (Severe, Verified 11/17/18 16:57) Anaphylaxis ANaphylactic meperidine HCl [From Demerol] Allergy (Intermediate, Verified 11/17/18 16:57) itching ketorolac tromethamine [From Toradol] Adverse Reaction (Verified 11/17/18 16:57) morphine Adverse Reaction (Verified 11/17/18 16:57) Rash Home Medications: Ambulatory Orders Amlodipine Besylate [Norvasc] 5 mg PO DAILY 09/09/18 Budesonide/Formoterol Fumarate [Symbicort 160-4.5 Mcg Inhaler] 2 puff IH BID
== END 2018-11-17 17:23 | disposition home or self-care (01) ==
LOC: ED 16:53
DX: S61.210A Laceration without foreign body of right index finger without damage to nail, initial encounter (principal); W45.8XXA Other foreign body or object entering through skin, initial encounter
CPT/HCPCS: 99282